=== PATIENT | male | born 1960 | race Caucasian/White ===

== ENCOUNTER 2016-11-14 01:42 | Inpatient (IN) | payer BC ==
--- NOTE | ~2016-11-14 | OP ---
Record Of Operation [facility] [address] [address] NAME: YUE BASS : 62 STATUS : ADM IN PAT#: [id number] AGE: 56 ADM/REG DATE : 11/14/16 MR#: [id number] REPORT SERV DATE: 11/25/16 DICTATED BY: SHANE QUILES DATE: 11/24/16 REPORT STATUS : Draft TRANSCRIBED BY: MODL DATE: 11/24/16 DATE OF PROCEDURE: 11/24/2016 TIME: 2020 hours PROCEDURE: Intubation. INDICATION: Arrest. DESCRIPTION OF PROCEDURE: Pre-oxygenated with 100% oxygen and monitored by blood pressure, EKG, and pulse oximetry. A #7 endotracheal tube placed under direct vision with the GlideScope and bougie to 23 cm. Tube seen to enter between cords. Confirmed by end-tidal CO2 monitor. Of note, the cuff was felt to be and tube was replaced bougie same distance 23 cm. Good breath sounds bilaterally. Sat 100%. Chest x-ray ordered. JANE/SHAWN Shane Quiles M.D. / [id number] CC: Jung Beasley M.D.
--- NOTE | ~2016-11-14 | CN ---
Consultation Report [facility] [address] [place]. [address] NAME: YUE BASS : 62 STATUS : ADM IN [facility]#: [id number] AGE: 56 ADM/REG DATE : 11/14/16 MR#: [id number] REPORT SERV DATE: 12/01/16 DICTATED BY: REJI RICHARD DATE: 12/01/16 REPORT STATUS : Draft TRANSCRIBED BY: MODL DATE: 12/01/16 ICU CONSULTATION DATE OF CONSULTATION: CHIEF COMPLAINT: Respiratory failure. HISTORY OF PRESENT ILLNESS: This is a 56-year-old male with multiple medical problems, who was admitted with PFO shunting and along with pneumonia and hypercapnic respiratory failure. He has a history of chronic bronchitis, chronic hypercapnia, right hemidiaphragmatic paresis, chronic hypoxemia, hypothyroidism, end-stage renal disease, on dialysis, hypertension, dysphagia, and chronic pain along with stage IV throat cancer, treated with chemo and radiation in early 2005. He was admitted with purulent sputum, pulmonary infiltrates, and elevated pCO2. He required intubation and has been intubated for over two weeks. He has been difficult to extubate. This morning, he developed worsening of his pulmonary function with increasing of oxygen requirements up to 100% and saturations in the 80s. PAST MEDICAL HISTORY: As mentioned in the history of present illness. 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 ALLERGIES: PENICILLIN AND IV CONTRAST. MEDICATIONS: See the MAR. SOCIAL HISTORY: History of tobacco use. No alcohol or drug use. He is with three children. PHYSICAL EXAMINATION: VITAL SIGNS: Temperature is 97.8, pulse is 72, respirations 29, blood pressure 103/53, oxygen saturations 83% on 100% FiO2. GENERAL: He is sedated on the ventilator. HEENT: His ears are normal appearing. His nose normal appearing. His oral cavity and oropharynx has an orotracheal and endotracheal tube. NECK: Thin and supple. No obvious abnormalities on inspection. He is sedated and does not respond well for questioning at this time. I discussed the case with the and daughter, who was at the bedside. IMPRESSION: Acute respiratory failure with multiple comorbidities. PLAN: I discussed the findings with the and daughter and would hold off on tracheotomy Consultation Report [facility] [address] [place]. [address] NAME: YUE BASS : 62 STATUS : ADM IN PAT#: [id number] AGE: 56 ADM/REG DATE : 11/14/16 MR#: [id number] REPORT SERV DATE: 12/01/16 DICTATED BY: REJI RICHARD DATE: 12/01/16 REPORT STATUS : Draft TRANSCRIBED BY: MODL DATE: 12/01/16 at this time given his increased oxygen demand at this point, as I think it would be unsafe to proceed with any type of surgical intervention. I will be available for tracheotomy if the time presents itself and it can be done safely with improvement in his condition. PH/MODL Reji Richard M.D. / [id number] CC: Jung Beasley M.D.
--- NOTE | ~2016-11-14 | CN ---
Consultation Report [facility] [address] [place]. [address] NAME: YUE BASS : 62 STATUS : ADM IN PAT#: [id number] AGE: 56 ADM/REG DATE : 11/14/16 MR#: [id number] REPORT SERV DATE: 11/14/16 DICTATED BY: MOHSEN MACARIO IV DATE: 11/14/16 REPORT STATUS : Draft TRANSCRIBED BY: SHAWN DATE: 11/14/16 CONSULTATION DATE OF CONSULTATION: ADDENDUM: OUTPATIENT MEDICATIONS: Dulera two puffs twice a day, Zofran 8 mg twice a day as needed, Percocet 10/325 mg daily, Viagra 100 mg daily, and Bactrim one twice a day. SOCIAL HISTORY: Remarkable for the previous tobacco use as above. There is no alcohol or illicit drug use. He is and has three children. FAMILY HISTORY: Remarkable for no known major medical problems in family members. PHYSICAL EXAMINATION: GENERAL: This is a late middle-aged male, appearing older than his stated age. No current respiratory distress. CURRENT VITAL SIGNS: Temperature is 97.6, pulse is 74, respiratory rate is 16, saturation 96% on 60% BiPAP, blood pressure is 193/88. HEENT: The patient is normocephalic, atraumatic. Extraocular movements are intact. Pupils react to light. Sclerae and conjunctivae are normal. He is on BiPAP mask. On quick look, he has decreased mouth opening with multiple missing teeth. There is dry oral mucosa. NECK: Postsurgical changes consistent with a right radical neck dissection with woody induration and postradiation changes. There is no palpable mass or adenopathy. CHEST: The patient has bilateral rhonchi with some inspiratory squeaks and crackles. No true wheezes are noted. CARDIOVASCULAR: Jugular venous pulsations are difficult to elicit. He has a regular S1, S2 with a S3 and a 2/6 systolic murmur at the sternal border. Peripheral pulses are diminished. ABDOMEN: PEG tube is noted. Protuberant. Soft. There are hypoactive bowel sounds. There is no palpable hepatosplenomegaly or mass. EXTREMITIES: Demonstrate a vascular graft in his arm. NEUROLOGIC: The patient is able to move all extremities. Strength is 5/5 and sensation is intact to light touch. LABORATORY DATA: Chest x-ray demonstrates some increased infiltrates bilaterally with elevation of the right hemidiaphragm. CBC; hemoglobin is 9.8, hematocrit 32.7, platelet count was 226,000, and white blood cell count is 9. INR is 1. PTT is 30.8. Procalcitonin level was 1.24. Sodium is 136, potassium 4.8, chloride 96, bicarb 30, BUN 22, creatinine 6.73, glucose of 93, magnesium is 2. The BNP is 1400, blood gas was pH 7.27, PaO2 of 67, pO2 of 70, which is not significantly different than his baseline. Two. Consultation Report [facility] [id number] [place]. [address] NAME: YUE BASS : 62 STATUS : ADM IN PAT#: [id number] AGE: 56 ADM/REG DATE : 11/14/16 MR#: [id number] REPORT SERV DATE: 11/14/16 DICTATED BY: MOHSEN MACARIO IV DATE: 11/14/16 REPORT STATUS : Draft TRANSCRIBED BY: SHAWN DATE: 11/14/16 ASSESSMENT AND PLAN: 1. Respiratory. The patient's pCO2 is essentially near his baseline, which is usually in the high 50s to low 60s. The chronic hypercapnia is likely multifactorial, however, includes his benzodiazepine use and narcotics. He will be given steroids. If there is a mild exacerbation with Solu-Medrol today, then prednisone tomorrow. He will be given Brovana and Pulmicort twice a day. Duo nebs will be given q.4 hours with albuterol p.r.n. Acapella valve will be given three times a day to help with mucus clearance. Oxygen will be titrated to maintain saturation in the 90% to 94% range. He will remain on the BiPAP at 18/7 with a rate of 10, we can change this as he clinically improves. Chest x-ray will be obtained tomorrow. 2. Infectious disease. The patient is at high risk for resistant organisms with his postsurgical changes and previous dialysis in the clinic. There is also question about aspiration. Will change antibiotics to cefepime and vancomycin per pharmacy. Sputum was sent for Gram stain culture. Procalcitonin level has been requested. 3. Endocrinology. Thyroid functions will be obtained and adjust Synthroid as indicated. 4. Gastrointestinal. We will restart tube feeds per pharmacy. He will undergo swallow evaluation next week. 5. Hematologic. Heparin subcutaneous for deep vein thrombosis prophylaxis. 6. Cardiovascular. The patient is hypertensive. We will restart his medications, give hydralazine as needed for persistent elevation. 7. Neurology. I would recommend avoidance of narcotics and sedatives if at all possible. 8. Renal. Dialysis per Nephrology. Thank you for consulting us. Critical care time seen is 0510 hours to 0610 hours for 60 minutes. ALESHA/SHAWN Mohsen Macario IV, M.D. / [id number] CC: Dewey Gray M.D.
--- NOTE | ~2016-11-14 | CN ---
Consultation Report [facility] [address] [place]. [address] NAME: YUE BASS : 62 STATUS : ADM IN PAT#: [id number] AGE: 56 ADM/REG DATE : 11/14/16 MR#: [id number] REPORT SERV DATE: 11/15/16 DICTATED BY: MOHSEN MACARIO IV DATE: 11/14/16 REPORT STATUS : Draft TRANSCRIBED BY: SHAWN DATE: 11/14/16 CRITICAL CARE CONSULTATION DATE OF CONSULTATION: 11/14/2016 REASON FOR REQUEST: Hypercapnic respiratory failure with chronic bronchitis and chronic hypoxemia. HISTORY OF PRESENT ILLNESS: History is obtained from the records and from the patient and . Mr. Bass is a 56-year-old male with a history of chronic bronchitis, chronic hypercapnia, right hemidiaphragm paresis, chronic hypoxemia, hypothyroidism, end- stage renal disease on dialysis, hypertension, dysphagia and chronic pain, stage IV throat cancer, who is admitted with chest congestion, reported purulent sputum production, and possibly increased pulmonary infiltrates with an elevated pCO2. The patient has had several hospitalizations in the past, though none that I can find since 09/2015. He is chronically on supplemental oxygen up to reported 7 L at home. This is presumed secondary to a right-to left shunt with PFO. He does have chronic bronchitis, for which he is on bronchodilator medications. He has Dulera, which is his maintenance medication, which he admits to using on an as-needed basis. He has a nebulizer that he will use on average three to four times a day. He has a very limited exercise tolerance. He noted increased chest congestion and cough, productive of discolored phlegm. He had a fever sensation. Because of worsening symptoms, he sought evaluation in the emergency room, where he was found to be hypercapnic with a pCO2 of 67 and [id number] respiratory distress, for which he was placed on BiPAP. X-ray demonstrated what appeared to be increased infiltrates, for which we are consulted. The patient has no exposure to ill individuals. He admits to eating intermittently, though has consistently failed swallow evaluations in the past. He is compliant with his dialysis and reportedly is at his dry weight. PULMONARY HISTORY: Remarkable for no history of childhood asthma. He is followed by Dr. Gong for chronic bronchitis. He has had pneumonia on several occasions in the past. He never smoked cigarettes, but did use smokeless tobacco for about 10 years. He quit at the time of his tonsillar cancer. 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 Currently, he is disabled. He is up-to-date on his immunizations. PAST MEDICAL HISTORY: 1. Chronic bronchitis. 2. Chronic hypercapnia/respiratory failure. 3. Right hemidiaphragm paresis. 4. Chronic hypoxemia. 5. Hypothyroidism. 6. End-stage renal disease, on dialysis. 7. Hypertension. 8. Dysphagia. 9. Chronic pain syndrome. 10.Stage IV throat cancer. Consultation Report [facility] [address] [place]. [address] NAME: YUE BASS : 62 STATUS : ADM IN [facility]#: [id number] AGE: 56 ADM/REG DATE : 11/14/16 MR#: [id number] REPORT SERV DATE: 11/15/16 DICTATED BY: MOHSEN MACARIO IV DATE: 11/14/16 REPORT STATUS : Draft TRANSCRIBED BY: SHAWN DATE: 11/14/16 PAST SURGICAL HISTORY: 1. Right radical neck dissection with removal of a tonsillar cancer. 2. Tonsillectomy and adenoidectomy. 3. Fistula in his left upper extremity. 4. PEG tube placement. ALLERGIES: PENICILLIN AND IV CONTRAST. OUTPATIENT MEDICATIONS: Include DuoNeb three times a day as needed, Xanax 1 mg four times a day, Soma 350 mg three times a day p.r.n., Coreg 12.5 mg twice a day, Catapres 0.3 mg twice a day, Catapres patch #3 every week, vitamin B12 daily, Epogen 10,000 units subcu three times a week, Duragesic patch 15 mcg every 72 hours, Synthroid 88 mcg daily, Dulera two puffs twice a day, Zofran as needed, Percocet 10/325 mg daily, Viagra 100 mg daily, and Bactrim one twice a day. SOCIAL HISTORY: Remarkable for the previous tobacco use as above. There is no alcohol or illicit drug use. He is and has three children. FAMILY HISTORY: Remarkable for no known major medical problems in family members. PHYSICAL EXAMINATION: GENERAL: This is a late middle-aged male, appearing older than his stated age. No current respiratory distress. CURRENT VITAL SIGNS: Temperature is 97.6, pulse is 74, respiratory rate is 16, saturation 96% on 60% BiPAP, blood pressure is 193/88. HEENT: The patient is normocephalic, atraumatic. Extraocular movements are intact. Pupils react to light. Sclerae and conjunctivae are normal. He is on BiPAP mask. On quick look, he has decreased mouth opening with multiple missing teeth. There is dry oral mucosa. NECK: Postsurgical changes consistent with a right radical neck dissection with woody induration and postradiation changes. There is no palpable mass or adenopathy. CHEST: The patient has bilateral rhonchi with some inspiratory squeaks and crackles. No true wheezes are noted. CARDIOVASCULAR: Jugular venous pulsations are difficult to elicit. He has a regular S1, S2 with a S3 and a 2/6 systolic murmur at the sternal border. Peripheral pulses are diminished. ABDOMEN: PEG tube is noted. Protuberant. Soft. There are hypoactive bowel sounds. There is no palpable hepatosplenomegaly or mass. EXTREMITIES: Demonstrate a vascular graft in his arm. NEUROLOGIC: The patient is able to move all extremities. Strength is 5/5 and sensation is intact to light touch. LABORATORY DATA: Chest x-ray demonstrates some increased infiltrates bilaterally with elevation of the right hemidiaphragm. CBC; hemoglobin is 9.8, hematocrit 32.7, platelet count was 226,000, and white blood cell count is 9. INR is 1. PTT is 30.8. Procalcitonin Consultation Report [address] [address] NAME: YUE BASS : 62 STATUS : ADM IN [facility]#: [id number] AGE: 56 ADM/REG DATE : 11/14/16 MR#: [id number] REPORT SERV DATE: 11/15/16 DICTATED BY: MOHSEN MACARIO IV DATE: 11/14/16 REPORT STATUS : Draft TRANSCRIBED BY: MODL DATE: 11/14/16 level was 1.24. Sodium is 136, potassium 4.8, chloride 96, bicarb 30, BUN 22, creatinine 6.73, glucose of 93, magnesium is 2. The BNP is 1400, blood gas was pH 7.27, PaO2 of 67, pO2 of 70, which is not significantly different than his baseline. Two. ASSESSMENT AND PLAN: 1. Respiratory. The patient's pCO2 is essentially near his baseline, which is usually in the high 50s to low 60s. The chronic hypercapnia is likely multifactorial, however, includes his benzodiazepine use and narcotics. He will be given steroids. If there is a mild exacerbation with Solu-Medrol today, then prednisone tomorrow. He will be given Brovana and Pulmicort twice a day. Duo nebs will be given q.4 hours with albuterol p.r.n. Acapella valve will be given three times a day to help with mucus clearance. Oxygen will be titrated to maintain saturation in the 90% to 94% range. He will remain on the BiPAP at 18/7 with a rate of 10, we can change this as he clinically improves. Chest x-ray will be obtained tomorrow. 2. Infectious disease. The patient is at high risk for resistant organisms with his postsurgical changes and previous dialysis in the clinic. There is also question about aspiration. Will change antibiotics to cefepime and vancomycin per pharmacy. Sputum was sent for Gram stain culture. Procalcitonin level has been requested. 3. Endocrinology. Thyroid functions will be obtained and adjust Synthroid as indicated. 4. Gastrointestinal. We will restart tube feeds per pharmacy. He will undergo swallow evaluation next week. 5. Hematologic. Heparin subcutaneous for deep vein thrombosis prophylaxis. 6. Cardiovascular. The patient is hypertensive. We will restart his medications, give hydralazine as needed for persistent elevation. 7. Neurology. I would recommend avoidance of narcotics and sedatives if at all possible. 8. Renal. Dialysis per Nephrology. Thank you for consulting us. Critical care time seen is 0510 hours to 0610 hours for 60 minutes. NM/MODL Mohsen Macario IV, M.D. / [id number] CC: Dewey Gray M.D.
--- NOTE | ~2016-11-14 | CN ---
Consultation Report [facility] [address] [place]. [address] NAME: YUE BASS : 62 STATUS : ADM IN PAT#: [id number] AGE: 56 ADM/REG DATE : 11/14/16 MR#: [id number] REPORT SERV DATE: 12/01/16 DICTATED BY: ERWIN RUDD DATE: 12/01/16 REPORT STATUS : Draft TRANSCRIBED BY: MODL DATE: 12/01/16 PALLIATIVE CARE CONSULTATION DATE OF CONSULTATION: 12/01/2016 This palliative care consultation occurred from 1110 to 1300 hours today. This included discussion with Dr. Boateng, review of the chart and records, examination of the patient and discussion with the patient's and daughter. ALLERGIES: LISTED INCLUDE IV CONTRAST, PHENERGAN, AND PENICILLIN. HISTORY: This 56-year-old white male, who home dialyzes for a number of years was admitted on 11/14/2016 with having been found with his oxygen off and altered mental status. He was getting 7-8 L of oxygen at home. How long he was deprived of oxygen and, the reason for it is unclear. The patient was on the transplant list up until his admission, but currently with 100% oxygen requirement, ongoing ventilatory support and difficulty with dialysis as well as progressive other medical issues that does not appear to be a viable plan. I am asked to see the patient and family with regard to possible transitions in care and discussion of supportive measures including resuscitation. The patient is a chronic CO2 retainer. PAST MEDICAL HISTORY: Remarkable for CO2 in the 50s which are chronic, vomitus and aspiration episode in the recent past. He has failed swallowing studies in the past and has had a PEG tube for a number of years after a remote stage IV throat cancer was cured with radiation and chemotherapy greater than 10 years ago. He carries a diagnosis of an IgA nephropathy and Peyronie disease. He has chronic pain issues, hypertension, ongoing debility and anxiety. He has chronic low oxygen levels, felt to be secondary to a right to left cardiac shunt from the patent foramina ovale and pulmonary hypertension last documented to be in the 60s in 2014 with a right heart catheterization. There are reports he has a right paralyzed right diaphragm likely from a previous decortication and thoracotomy on the right side in 2009 for an empyema and severe pneumonia which was almost fatal. SOCIAL HISTORY: He is for a number of years to his , Asiya. They live in [place], he has three children. He did chew tobacco in the past, but stopped with his cancer diagnosis some 12-13 years ago. 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 Family reports a recent 20-pound weight loss. He has fentanyl patches which evidently he keeps one on after he replaces it and this is his usual pattern. Most of his pain appears to be orthopedic possibly related to sports injuries. On admission here, he was 190 pounds, he is now down to 166 with overall increase in his ventilatory support, possibly associated with a transportation for dialysis yesterday. Family reports that the patient was alert and writing notes the day before yesterday. Laboratory testing shows obvious hypercarbia which is not radically different than before, hypoxemia requiring as much as 15 cm of PEEP and Consultation Report [facility] [id number] [facility] [place]. [address] NAME: YUE BASS : 62 STATUS : ADM IN [facility]#: [id number] AGE: 56 ADM/REG DATE : 11/14/16 MR#: [id number] REPORT SERV DATE: 12/01/16 DICTATED BY: ERWIN RUDD DATE: 12/01/16 REPORT STATUS : Draft TRANSCRIBED BY: SHAWN DATE: 12/01/16 100% oxygen. He does have evidence of hypothyroidism on lab testing, and his procalcitonin is rising as his white count. His rising alveolar arterial oxygen gradient is substantial. Staff in the Dialysis Center note that it is getting harder to pull fluid on him. FAMILY HISTORY: Noncontributory. REVIEW OF SYSTEMS: Includes weight loss, home dialysis, and chronic pain issues. PHYSICAL EXAMINATION: GENERAL: Today shows him to be on some propofol on the ventilator. His eyes are somewhat glazed. VITAL SIGNS: His blood pressure is 105/60, his respiratory rate is 24 on CMV and 100%. His pulse is 74 and regular. Respiratory rate is set at 16 to 18 I believe. HEENT: Head, normocephalic. Eyes, equal, sluggish pupils. Sclerae anicteric. Conjunctiva pale but pink. Oropharynx is somewhat dry. He does have some radiation stigmata on the right side of his face and neck. Trachea is midline. He is orally intubated. LUNGS: Show coarse mechanical breath sounds with decreased breath sounds on the left which are somewhat bronchial posteriorly. HEART: Shows a regular rate and rhythm. There is a grade 2-3/6 systolic murmur in the mid chest. ABDOMEN: Shows a PEG tube in the left upper quadrant. Bowel sounds are present but decreased. EXTREMITIES: Cool and dry. There is a trace of edema present. NEUROLOGICAL: Deferred secondary to his sedation. IMPRESSION/PLAN/DISCUSSION: I had an opportunity to meet with the patient's and one of his daughters as well as Dr. Boateng. The current respiratory situation, his cardiac issues, and his increasing left lung infiltrate are of concern. 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 On the other hand, she has commented that he is very tough and in 2009, people thought he was not going to survive his hospitalization with his polymicrobial pneumonia and empyema but he did. We have not discussed the chronological events in the interim. Unfortunately, at this point, the number of correctable problems is somewhat limited and I am not even certain that he will ever stabilize enough to receive a tracheostomy. I certainly think however that before it is placed, that all of us are in clear discussion with the patient and family assuring them that this is not going to be a short-term proposition and that the possibility of needing a tracheostomy permanently may exist. A total of 110 minutes has taken in today's consultation. Consultation Report [address] [address] NAME: YUE BASS : 62 STATUS : ADM IN [facility]#: [id number] AGE: 56 ADM/REG DATE : 11/14/16 MR#: [id number] REPORT SERV DATE: 12/01/16 DICTATED BY: ERWIN RUDD DATE: 12/01/16 REPORT STATUS : Draft TRANSCRIBED BY: SHAWN DATE: 12/01/16 GERRY/SHAWN Erwin Rudd M.D. / [id number] CC: Jung Beasley M.D.
--- NOTE | ~2016-11-14 | CN ---
Consultation Report [facility] [address] [place]. [address] NAME: YUE BASS : 62 STATUS : ADM IN PAT#: [id number] AGE: 56 ADM/REG DATE : 11/14/16 MR#: [id number] REPORT SERV DATE: 11/19/16 DICTATED BY: CADE STEPHENSON DATE: 11/18/16 REPORT STATUS : Draft TRANSCRIBED BY: MODL DATE: 11/18/16 DATE OF CONSULTATION: This is a 56-year-old white male, admitted with hypoxia, respiratory failure, and atelectasis, currently on antibiotics, also had hypertension as well, now on Vapotherm. The patient is diabetic. He has end-stage renal disease, on hemodialysis. He has an IgA nephropathy. History of head and neck cancer, primarily from tonsil, had radiation, chemo, and surgery in the past, also has had PEG tube that had to be replaced by IR due to difficulty opening his mouth the last time his PEG was changed. His last colonoscopy was in 2012, which was unremarkable. His KUB in this admission with fecal stasis. He has had couple episodes of nausea and vomiting, some periumbilical abdominal pain. There has been no bleeding. He has had no bowel movement in a couple of days. White count 7800, hemoglobin 12.1. LFTs unremarkable. PHYSICAL EXAMINATION: GENERAL: Mildly lethargic white male. HEENT: Sequelae of his tonsillar CA radiation. Little ability to open his mouth. NECK: Sequelae of his head and neck cancer and surgery. CHEST: Scattered rhonchi. HEART: Regular rate and rhythm without murmur or gallop. ABDOMEN: Mild distention, some tenderness in periumbilical area. Bowel sounds hypoactive. PEG tube noted into suction. EXTREMITIES/NEUROLOGIC: Otherwise grossly intact. ASSESSMENT: 1. Respiratory failure, on Vapotherm and on antibiotics. 2. End-stage renal disease, on hemodialysis. 3. Hypertension. 4. Diabetes mellitus. 5. Status post tonsillar cancer. 6. Status post PEG. 7. Nausea, vomiting, and periumbilical discomfort. 8. Constipation. SUGGESTION: 1. Continue Protonix, continue Zofran. 2. Continue PEG to suction. 3. We will check ultrasound of the gallbladder, CT of the abdomen. 4. After the above, we will address fecal stasis. 5. We will follow with you. MICHELLE/SHAWN Consultation Report [place] [id number] [place] [address] NAME: YUE BASS : 62 STATUS : ADM IN PAT#: [id number] AGE: 56 ADM/REG DATE : 11/14/16 MR#: [id number] REPORT SERV DATE: 11/19/16 DICTATED BY: CADE STEPHENSON DATE: 11/18/16 REPORT STATUS : Draft TRANSCRIBED BY: SHAWN DATE: 11/18/16 Cade Stephenson M.D. / [id number] CC: Jung Beasley M.D.
--- NOTE | ~2016-11-14 | HP ---
History And Physical [place] [id number] [facility] [place]. [address] NAME: YUE BASS : 62 STATUS : ADM IN [facility]#: [id number] AGE: 56 ADM/REG DATE : 11/14/16 MR#: [id number] REPORT SERV DATE: 11/14/16 DICTATED BY: JUNG BEASLEY DATE: 11/14/16 REPORT STATUS : Draft TRANSCRIBED BY: MODL DATE: 11/14/16 DATE OF ADMISSION: 11/14/2016 ADMITTING GROUP: [facility]. SUBJECTIVE/CHIEF COMPLAINT: Found down off his oxygen, altered mental status, respiratory failure, end-stage renal disease, home hemodialysis. HISTORY OF PRESENT ILLNESS: Mr. Bass is a 56-year-old, gentleman with multifactorial hypoxia, known to the practice, seen by Dr. Durant and Dr. Del Valle for home hemodialysis, which he performs four times a week. He is also on oxygen at home at 8 L. The patient was found down by family off his O2, unknown and unspecified amount of time and the patient cannot recall what started that prodrome, but EMS was called. The patient was brought to [facility] ER. Blood pressure 138/74, temperature 96.8. He was given Levaquin and Solu-Medrol and started on BiPAP. Current settings were FiO2 60, IPAP of 18, EPAP of 10. He is a poor historian. When I ask him direct questions, he kind of gives vague answers. He may tolerate high-flow O2. He wants to be off the BiPAP, which is fine as long as his oxygenation status is stable. He was asking for his home pain medicines to be restarted. Dr. Macario saw the patient in consultation yesterday and provided imported recommendations including IV antibiotics, Levaquin, cefepime, and vancomycin, and advised regarding BiPAP versus high-flow oxygenation. The patient is currently on 6 L nasal cannula, but only saturating 82%. PAST MEDICAL HISTORY: Diabetes; end-stage renal disease using home hemodialysis, patient of Dr. Del Valle; IgA nephropathy, throat cancer, hypertension, and anxiety. FAMILY HISTORY: Unremarkable for kidney disease. SOCIAL HISTORY: Lives with and three children in [place]. Previous tobacco use. No alcohol or drug use. 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 REVIEW OF SYSTEMS: Positive for neck and shoulder pain, lethargy, and shortness of breath. And all other review of systems negative this time. OBJECTIVE/PHYSICAL EXAMINATION: VITAL SIGNS: Temperature 98.0, pulse 75, blood pressure 173/90, 82% O2 saturation on 6 L nasal cannula. GENERAL: Appears older than stated age. EYES: Extraocular movements intact. No conjunctivitis. ENT: [facility], dry oropharynx. No facial droop. LYMPHATICS: No supraclavicular or cervical lymphadenopathy. SKIN: Dusky skin color. No rash. HEART: S1, S2 regular. EXTREMITIES: 2+ bilateral lower extremity edema from the knees down. LUNGS: Few crackles, wearing the BiPAP mask, now switched over to O2. He has mild tachypnea. History And Physical [address] [place]. [address] NAME: YUE BASS : 62 STATUS : ADM IN [facility]#: [id number] AGE: 56 ADM/REG DATE : 11/14/16 MR#: [id number] REPORT SERV DATE: 11/14/16 DICTATED BY: JUNG BEASLEY DATE: 11/14/16 REPORT STATUS : Draft TRANSCRIBED BY: SHAWN DATE: 11/14/16 ABDOMEN: Soft, nontender, decreased bowel sounds. EXTREMITIES AND PSYCH: Alert and oriented x2. [id number] historian. Positive cough and lethargy. LABORATORY DATA: Chest x-ray shows bibasilar atelectasis and/or infiltrate. ABG; pH of 7.27, pCO2 67, pO2 70, bicarbonate 29.9, 90% O2 saturation on FiO2 60. Troponin I 0.02. TSH 5.28. Sodium 136, potassium 4.8, chloride 96, bicarb 30, BUN 22, creatinine 6.73, glucose 93, calcium 7.7, magnesium 2.2, albumin 2.5, BNP 2400. White count 9.0, hemoglobin 9.8, hematocrit 32.7, and platelets 226. Blood cultures x2 are pending. ASSESSMENT AND PLAN: Mr. Bass is a 56-year-old, gentleman with hypoxic respiratory distress, home Hemodialysis, bilateral crackles, elevated pCO2. 1. Renal. The patient will have hemodialysis tomorrow. We will place on a Tuesday, Tuesday, and Tuesday schedule here at dialysis unit. He says his target weight is about 85 and that they are trying to pull him dry nurses orders for home hemo. 2. Pulmonary. I appreciate recommendations on vancomycin, cefepime, and Levaquin. He needs high-flow oxygen and/or BiPAP. He has multifactorial hypoxia. His chest x-ray shows bilateral infiltrates. RG/MODL Jung Beasley M.D. / [id number] CC: Dewey Gray M.D.
--- NOTE | ~2016-11-14 | OP ---
Record Of Operation [facility] [address] [facility] [place] [address] NAME: YUE BASS : 62 STATUS : ADM IN [facility]#: [id number] AGE: 56 ADM/REG DATE : 11/14/16 MR#: [id number] REPORT SERV DATE: 11/27/16 DICTATED BY: ESTRELLA DIEZ DATE: 11/26/16 REPORT STATUS : Draft TRANSCRIBED BY: MODL DATE: 11/26/16 DATE OF PROCEDURE: 11/26/2016 INDICATION FOR PROCEDURE: CT scan shows multifocal pneumonia in the upper lobe in a patient with end-stage renal disease and concern for opportunistic infection. DIAGNOSIS: Acute hypoxic respiratory failure. POSTOPERATIVE DIAGNOSIS: Acute hypoxic respiratory failure with concomitant multifocal pneumonia. PROCEDURE NOTE: The patient was already intubated. He received 100 mg of propofol and 2 mg of Versed for sedation. We were able to put the bronchoscope down the endotracheal tube, the endotracheal tube was in good position. There was a significant amount of sputum in the bottom of the endotracheal tube and adithya. This was suctioned and an airway examination was conducted. We placed the bronchoscope in the right upper lobe and obtained a bronchoalveolar lavage of the right upper lobe and posterior subsegment of the right lower lobe for culture data. We were able to obtain around 40 mL fluid for testing. PLAN: Please follow up microbiological and pathological studies. Continue current antibiotic coverage. HFQ/SHAWN Estrella Diez MD / [id number] CC: Jung Beasley M.D.
--- NOTE | ~2016-11-14 | DS ---
Discharge Summary [facility] [address] [place]. [address] NAME: YUE BASS : 62 STATUS : DIS IN PAT#: [id number] AGE: 56 ADM/REG DATE : 11/14/16 MR#: [id number] REPORT SERV DATE: 12/21/16 DICTATED BY: ELIZABETH CRUMP JR DATE: 12/20/16 REPORT STATUS : Draft TRANSCRIBED BY: SHAWN DATE: 12/20/16 Data Collection from hospitalization DISCHARGE DIAGNOSES: 1. Acute kidney injury. 2. Pulmonary hypertension. 3. Failure to thrive. 4. Diabetes. 5. Hypertension. 6. End-stage renal disease. 7. IgA nephropathy. 8. History of throat cancer. 9. Anxiety. 10.History of tobacco use. CONSULTATIONS: 1. Kojo Macario M.D. 2. Elmer Kim M.D. 3. Tashi Hale M.D. 4. Pacheco Rudd M.D. 5. Zaheer Patrick M.D. PROCEDURES: 1. Intubation 11/24/2016. 2. Bronchoscopy with bronchoalveolar lavage 11/26/2016. 3. Doppler evaluation of left upper extremity dialysis fistula 11/16/2016. 4. CT scan of the abdomen and pelvis without contrast 11/18/2016. 5. Gallbladder ultrasound 11/19/2016. 6. CT scan of the chest without contrast 11/26/2016. PATHOLOGY: Lung bronchoalveolar lavage (thin prep)-benign. No malignant cells identified. Scattered neutrophils noted. Gram stain for fungal organisms-multiple hyphal and yeast forms present suggesting Caryl species. No pneumocystitis identified. DISPOSITION: [facility]. HOSPITAL COURSE: This is a 56-year-old man who has multifactorial hypoxia. He sees Dr. Durant and Dr. Del Valle for home hemodialysis which he performs four times a week. He is also on oxygen at home at 8 L. The patient was found down by family off his O2 for an unspecified amount of time. The patient could not recall what started this issue. The EMS was called. He was brought to the [facility] Emergency Room. Blood pressure was 138/74. He was given Levaquin and Solu-Medrol and started on BiPAP. When asked direct questions, he would give answers. He may tolerate high-flow O2. He wanted to be off the BiPAP which would be fine as long as his oxygenation status was stable. He was asking for his home pain medications, and these were restarted. He was placed on IV antibiotics with Levaquin, cefepime, and vancomycin. He was admitted at this time for further evaluation and treatment. Discharge Summary [place] [address] [place]. [address] NAME: YUE BASS : 62 STATUS : DIS IN PAT#: [id number] AGE: 56 ADM/REG DATE : 11/14/16 MR#: [id number] REPORT SERV DATE: 12/21/16 DICTATED BY: ELIZABETH CRUMP JR DATE: 12/20/16 REPORT STATUS : Draft TRANSCRIBED BY: SHAWN DATE: 12/20/16 Upon admission, chest x-ray showed bibasilar atelectasis and/or infiltrate. Creatinine level was 6.73. Chest x-ray shows bilateral infiltrates. He was seen by Dr. Kojo Macario. His peak CO2 was essentially near his baseline which is usually in the high 50s to low 60s. Chronic hypercapnia was felt to be likely multifactorial; however, it does include his benzodiazepine use and narcotics. He was going to be given systemic steroids if there was a mild exacerbation with Solu-Medrol at this time and then prednisone the following day. He would also be given Brovana and Pulmicort twice a day. DuoNebs were going to be given and Acapella valve was going to be provided. We would titrate oxygen to maintain saturations in the 90% to 94% range. His antibiotics had been changed to cefepime and vancomycin. Sputum was sent for Gram stain and culture. Procalcitonin level was going to be checked. Heparin was given for DVT prophylaxis. He recommended avoiding all narcotics and sedatives if possible. A PICC line had been inserted. The following day, his breathing was better. He said he felt better. Creatinine level was 9.58. O2 and intermittent BiPAP continued. Hemodialysis therapy was performed. On the , he said he felt better with Vapotherm. He was seen by Dr. Zaheer Patrick. The patient had a left upper extremity AV graft with mild/stable left upper extremity edema. There was not a strong clinical suspicion for central venous stenosis. As the patient's symptoms were stable and hemodialysis was going well, left upper extremity fistula duplex was going to be performed to evaluate this. He underwent Doppler evaluation of left upper extremity dialysis fistula. He had a patent left upper extremity dialysis graft with what appeared to be adequate flow volume. On 11/17/2016, hemodialysis therapy continued. He did have some nausea and vomiting. He remained on Vapotherm. Vancomycin and cefepime were continued. He was given a dose of Phenergan. He was moved to the CCU with accelerated hypertension, nausea, vomiting, and abdominal pain. Cardene drip was being provided with his accelerated hypertension. He was seen by Dr. Elmer Kim. The patient has IgA nephropathy. He has a history of head and neck cancer primarily from the tonsil and had radiation, chemotherapy, and surgery in the past. He recommended that we continue Protonix and Zofran. He had had a PEG tube in place that had been replaced by Interventional Radiology due to difficulty opening his mouth. His last colonoscopy was in 2012 and had been unremarkable. An ultrasound of the gallbladder and CT scan of the abdomen were requested. After this was performed, we would address his fecal stasis. On the , hemodialysis therapy continued. He had a CT scan of the abdomen and pelvis without contrast as well as a gallbladder ultrasound. His abdominal pain had decreased. White count was 12.4. O2 was continued. Blood pressure control continued as well. Later that day, he did have some nausea. On 11/20/2016, the patient complained of some constipation. Tube feedings had been on hold. His pain had improved. On the , he appeared more comfortable. He was still on Cardene. Hemodialysis therapy continued. He had had some constipation. He was doing well on Vapotherm. His O2 requirement decreased. EPO was continued. He was changed to oral Reglan. The patient required intubation due to acute hypercapnic respiratory failure. It was felt that the patient should undergo bronchoscopy with bronchoalveolar alveolar lavage of the right upper lobe and posterior segment of the right lower lobe for culture data. The patient underwent this procedure by Dr. Estrella Diez. He tolerated this well. There were no complications. A CT scan of the chest without contrast was performed. The patient remained on vancomycin and cefepime. He had decreased bowel sounds, and he had some abdominal distention. There was some tympany. He did have a bowel movement. Tube feedings were on hold. MiraLAX was given. Dulcolax was also given. On 11/28/2016, his abdomen was Discharge Summary [facility] [address] [place]. [address] NAME: YUE BASS : 62 STATUS : DIS IN PAT#: [id number] AGE: 56 ADM/REG DATE : 11/14/16 MR#: [id number] REPORT SERV DATE: 12/21/16 DICTATED BY: ELIZABETH CRUMP JR DATE: 12/20/16 REPORT STATUS : Draft TRANSCRIBED BY: SHAWN DATE: 12/20/16 still markedly distended. He was felt to have an ileus and constipation. MiraLAX was continued. We were going to consider TPN. The patient had been a very difficult intubation. The following day, hemodialysis therapy was performed. Chest x-ray showed small bilateral pleural effusions, right greater than left. White count was 14.2. It was felt that the patient would need a trach. TPN therapy had been started. Subcu heparin and proton pump inhibitor were continued. He was lethargic but awake on the ventilator. He did indicate some abdominal pain. Blood pressure had increased. A dose of magnesium citrate was given. He had increased FiO2 requirement-now 100%. There was a new opacity in the left lung field. His prognosis overall was felt to be very poor. The patient had had a cardiac arrest on 11/24/2016 and had been intubated. He was felt to be too hypoxemic to trach safely. He was seen by Dr. Pacheco Rudd. The patient had been on a transplant list up until the time of this admission but was currently on 100% oxygen requirement, ongoing ventilatory support, and was having difficulty with dialysis as well as progressive other medical issues, and this did not appear to be a viable plan. He had been asked to see the patient and his family with regard to the possible transitioning care and discussion of supportive measures including resuscitation. The patient is a chronic CO2 retainer. He felt that the number of correctable problems were somewhat limited and he was not certain that the patient would ever stabilize enough to receive a tracheostomy. He felt that before this was placed, everyone would be clear in discussing with the patient and his family assuring them that this was not going to be a short-term proposition and that the possibility of needing a tracheostomy permanently may exist. The patient was also seen by Dr. Tashi Hale regarding respiratory failure. The patient has a history of stage IV throat cancer and had been treated with chemo and radiation in early 2005. He was felt to have acute respiratory failure with multiple comorbidities at this time. He discussed findings with the patient's and daughter. He recommended holding off on tracheotomy at this time given his increased oxygen demand at this point. He felt it would be unsafe to proceed with any type of surgical intervention. He would be available for tracheotomy if the time presented itself and could be done safely with improvement of the patient's condition. On 12/02/2016, dialysis therapy was not performed that day. He was on Levophed. Chest x- ray still showed volume overload with bilateral pleural effusions. He had some hypotension. The patient's felt that the patient was a fighter but did understand the gravity of his current illness. At this point, he was still a full code. He was only minimally responsive on Levophed. His decided to hold on dialysis. Tube feedings were also on hold. He remained on TPN. The left upper extremity AV graft was flushed so it could be used for CRRT. This was begun that evening. On the , he was minimally responsive. The patient's prognosis was felt to be dismal. The patient's made him a DNR code status. Levophed was held. The patient was felt to be in shock. CRRT continued. His prognosis remained extremely poor. Vancomycin was going to be stopped. On 12/05/2016, his condition continued to decline. He was sedated and unresponsive. The patient's family was now ready for care termination. His condition continued to decline. Later that afternoon, he was without blood pressure, pulse, or respirations. He was pronounced at 1629 p.m. and released to the above-mentioned home. Information collected by: Tanja Stover I submit the above information as my discharge summary. Discharge Summary [address] [place] [place] [address] NAME: YUE BASS : 62 STATUS : DIS IN PAT#: [id number] AGE: 56 ADM/REG DATE : 11/14/16 MR#: [id number] REPORT SERV DATE: 12/21/16 DICTATED BY: ELIZABETH CRUMP JR DATE: 12/20/16 REPORT STATUS : Draft TRANSCRIBED BY: SHAWN DATE: 12/20/16 TG/SHAWN Elizabeth Crump Jr, M.D. / [id number] CC: Dewey Gray M.D. Robert Warren Goldmann, M.D. Peter Hunt, M.D. David Collins, M.D.
[2016-11-14 01:21] LABS: INSTRUMENT SERIAL # 8087; PCO2 (CO2 TENSION) 66 MMHG (35-45); PO2 (O2 TENSION) 66 MMHG (79-93); pH 7.27 (7.37-7.43)
[2016-11-14 01:22] LABS: ALLENS TEST Pos; BE (BASE EXCESS) 1.6 MEQ/L (0 +/- 2.5); CARBOXYHEMOGLOBIN 1.8 % (0-3); DEVICE NRB; HCO3 (ACTUAL BICARBONATE) 29.7 MEQ/L (23-27); HEMOBLOGIN CONTENT 10.3 G/DL (14-18); METHEMOGLOBIN 0.3 % (0-3); O2 CONTENT 12.7 VOL% (18-24); OPERATOR ID 17589; SAMPLE Arterial
[~2016-11-14 01:42] MED LIST: ADCIRCA20 MG PO; ADOXA100 MG PO; ALBUTEROL NEB INH; AMB10 PEG; AMB10 PO; B121000P IM; BACDS PO; CAT2 PEG; CAT2 PO; CAT3 PO; CATAPRES3 TOP; COREG25 PO; COZAAR100 MG PO; DOLOPHINE10 MG PO; DOLOPHINE5 MG PO; DULERA 200 MCG/13 GM INH; DUONEB INH; DURA12 TOP; DURA25; DURA25 TOP; DURA50 TOP; EPOGEN10000 MG/M SC; FEOSOLEL IV; FESO4UDL PO; HYDROCODONE PO; IRON INJECTION IV; LEVAQUIN5T PO; LEVOTHYROXIN25 MCG PO; LEVOTHYROXIN75 MCG PEG; LEVOTHYROXIN75 MCG PO; LEVOTHYROXIN88 MCG PO; LORT7 PO; LOTREL1 CA5 PO; METHADOSE10 MG PO; NORCO1 TAB PO; NORV10 PEG; NORV10 PO; PERCOCET1 TA4 PEG; PERCOCET1 TA4 PO; PROTEIN SHAKES PO; SOMATAB PEG; SOMATAB PO; SYN88 PO; TRAN200 PEG; TRAN200 PO; TRANDAT100 PO; TRANDAT300 PO; TRANDATE PO; VIAGRA100 MG PO; XANAX1 MG PEG; XANAX1 MG PO; ZOFRAN8 PEG; ZOFRAN8 PO; ZOFRANODT8 PO
[2016-11-14 01:57] LABS: BASOPHILS 0.2 %; BASOPHILS ABSOLUTE 0.02 10/3/uL (0.0-0.16); EOSINOPHILS 0.9 %; EOSINOPHILS ABSOLUTE 0.08 10/3/uL (0.0-0.53); ER CBC TAT 0 Hrs 08 Mins; HEMOGLOBIN 9.8 g/dL (13.6-17.8); IMMATURE GRANULOCYTES 0.4 %; IMMATURE GRANULOCYTES ABSOLUTE 0.04 10/3/uL (0.0-0.11); LYMPHOCYTES ABSOLUTE 0.45 10/3/uL (0.67-4.30); MEAN CORPUSCULAR HEMOGLOB 28.8 pg (26.0-34.0); MEAN PLATELET VOLUME 9.3 fL (9.2-13.0); MONOCYTES 5.8 %; MONOCYTES ABSOLUTE 0.52 10/3/uL (0.21-1.20); NEUTROPHILS 87.7 %; PLATELET COUNT 226 10/3/uL (150-400); RBC DISTRIBUTION WIDTH 16.2 % (12.0-16.0)
[2016-11-14 01:58] LABS: HEMATOCRIT 32.7 % (40.0-51.0); MANUAL DIFF NO %; MEAN CORPUSCULAR VOLUME 96.2 fL (80-100)
[2016-11-14 02:07] LABS: INTERNATIONAL NORMAL RATI 1.1 UNITS (-); PROTIME (NOT ORD) 13.7 SEC (12.0-14.5)
[2016-11-14 02:12] LABS: PARTIAL THROMBO TIME 30.8 SEC (22.5-37.2)
[2016-11-14 02:23] LABS: BUN (BLOOD UREA NITROGEN) 22 MG/DL (6-23); CALCIUM, SERUM 7.7 MG/DL (8.5-10.4); CHEST PAIN PROFILE TAT 0 Hrs 28 Mins; CHLORIDE, SERUM 96 MMOL/L (96-112); CO2 (CARBON DIOXIDE) 30 MMOL/L (24-34); CREATININE 6.73 MG/DL (0.70-1.30); GFR AFRICAN AMERICAN 10 ML/MIN (>=60); GFR NON AFRICAN AMERICAN 8 ML/MIN (>=60); GLUCOSE, SERUM 93 MG/DL (60-99); POTASSIUM, SERUM 4.8 MMOL/L (3.5-5.3); SODIUM, SERUM 136 MMOL/L (135-148); TROPONIN I 0.02 NG/ML (<0.05)
[2016-11-14 03:05] LABS: TOTAL BILIRUBIN 0.5 MG/DL (0-1.2)
[2016-11-14 03:12] LABS: ALBUMIN 3.5 G/DL (3.5-5.0); DIRECT BILIRUBIN 0.2 MG/DL (0.0-0.4); INDIRECT BILIRUBIN(NOT ORDER) 0.3 MG/DL (0.1-0.9); SGOT(AST) 37 U/L (5-40); SGPT(ALT) 47 U/L (5-65); TOTAL PROTEIN 7.3 G/DL (6.0-8.5)
[2016-11-14 03:13] LABS: ALKALINE PHOSPHATASE 105 U/L (45-117)
[2016-11-14 03:52] LABS: BE (BASE EXCESS) 1.9 MEQ/L (0 +/- 2.5); BIPAP 15/5 cm.H2O; CARBOXYHEMOGLOBIN 1.4 % (0-3); HCO3 (ACTUAL BICARBONATE) 29.9 MEQ/L (23-27); HEMOBLOGIN CONTENT 10.1 G/DL (14-18); INSTRUMENT SERIAL # 8087; METHEMOGLOBIN 0.3 % (0-3); O2 CONTENT 12.7 VOL% (18-24); OPERATOR ID 17589; PCO2 (CO2 TENSION) 67 MMHG (35-45); PO2 (O2 TENSION) 70 MMHG (79-93); SAMPLE Arterial; pH 7.27 (7.37-7.43)
[2016-11-14 07:02] LABS: FREE T4 0.63 NG/DL (0.76-1.46)
[2016-11-14 07:33] LABS: PROCALCITONIN 1.24 ng/mL (<0.5)
[2016-11-15 03:50] LABS: BASOPHILS 0 %; EOSINOPHILS 0 %; HEMATOCRIT 33.3 % (40.0-51.0); IMMATURE GRANULOCYTES 0.3 %; IMMATURE GRANULOCYTES ABSOLUTE 0.02 10/3/uL (0.0-0.11); LYMPHOCYTES 3.3 %; LYMPHOCYTES ABSOLUTE 0.19 10/3/uL (0.67-4.30); MEAN CORPUSCULAR HEMOGLOB 28.4 pg (26.0-34.0); MEAN CORPUSCULAR VOLUME 94.6 fL (80-100); MEAN PLATELET VOLUME 9.9 fL (9.2-13.0); MONOCYTES 2.6 %; MONOCYTES ABSOLUTE 0.15 10/3/uL (0.21-1.20); NEUTROPHILS 93.8 %; NEUTROPHILS ABSOLUTE 5.37 10/3/uL (2.02-8.40); PLATELET COUNT 227 10/3/uL (150-400); RBC DISTRIBUTION WIDTH 16.4 % (12.0-16.0); RED CELL COUNT 3.52 10/6/uL (4.7-6.1); WHITE BLOOD CELLS 5.7 10/3/uL (4.5-10.5)
[2016-11-15 03:55] LABS: MANUAL DIFF NO %
[2016-11-15 03:56] LABS: CALCIUM, SERUM 7.6 MG/DL (8.5-10.4); CHLORIDE, SERUM 98 MMOL/L (96-112); CO2 (CARBON DIOXIDE) 26 MMOL/L (24-34); POTASSIUM, SERUM 5.5 MMOL/L (3.5-5.3); SODIUM, SERUM 136 MMOL/L (135-148)
[2016-11-15 03:57] LABS: BUN (BLOOD UREA NITROGEN) 48 MG/DL (6-23); CREATININE 9.58 MG/DL (0.70-1.30); GFR AFRICAN AMERICAN 6 ML/MIN (>=60); GFR NON AFRICAN AMERICAN 5 ML/MIN (>=60); GLUCOSE, SERUM 116 MG/DL (60-99)
[2016-11-15 14:02] LABS: HEPATITIS B SURFACE ANTIGEN NON-REACTIVE (NON-REACT)
[2016-11-15 14:30] LABS: HEPATITIS B CORE AB IGM NON-REACTIVE (NON-REAC); HEPATITIS C ANTIBODY NON-REACTIVE (NON-REACT)
[2016-11-15 14:31] LABS: HIV COMBO NON-REACTIVE (NON REAC)
[2016-11-15 14:32] LABS: HEP A ANTIBODY IGM NON-REACTIVE (NON-REACT)
[2016-11-16 04:56] LABS: BASOPHILS 0 %; EOSINOPHILS 0 %; HEMATOCRIT 33.2 % (40.0-51.0); HEMOGLOBIN 10.2 g/dL (13.6-17.8); IMMATURE GRANULOCYTES 0.6 %; IMMATURE GRANULOCYTES ABSOLUTE 0.05 10/3/uL (0.0-0.11); LYMPHOCYTES 3.2 %; LYMPHOCYTES ABSOLUTE 0.28 10/3/uL (0.67-4.30); MEAN CORPUS HGB CONC 30.7 g/dL (32.0-36.0); MEAN CORPUSCULAR HEMOGLOB 28.5 pg (26.0-34.0); MEAN CORPUSCULAR VOLUME 92.7 fL (80-100); MEAN PLATELET VOLUME 9.6 fL (9.2-13.0); MONOCYTES 3.6 %; MONOCYTES ABSOLUTE 0.32 10/3/uL (0.21-1.20); NEUTROPHILS 92.6 %; NEUTROPHILS ABSOLUTE 8.18 10/3/uL (2.02-8.40); PLATELET COUNT 205 10/3/uL (150-400); RBC DISTRIBUTION WIDTH 16.6 % (12.0-16.0); RED CELL COUNT 3.58 10/6/uL (4.7-6.1)
[2016-11-16 04:57] LABS: MANUAL DIFF NO %; WHITE BLOOD CELLS 8.8 10/3/uL (4.5-10.5)
[2016-11-16 05:18] LABS: CALCIUM, SERUM 7.4 MG/DL (8.5-10.4); CHLORIDE, SERUM 99 MMOL/L (96-112); CO2 (CARBON DIOXIDE) 25 MMOL/L (24-34); CREATININE 9.21 MG/DL (0.70-1.30); GFR AFRICAN AMERICAN 7 ML/MIN (>=60); GFR NON AFRICAN AMERICAN 6 ML/MIN (>=60); GLUCOSE, SERUM 101 MG/DL (60-99); PHOSPHORUS, SERUM 4.8 MG/DL (2.5-4.5); POTASSIUM, SERUM 5.1 MMOL/L (3.5-5.3); SODIUM, SERUM 136 MMOL/L (135-148)
[2016-11-16 05:23] LABS: BUN (BLOOD UREA NITROGEN) 57 MG/DL (6-23)
[2016-11-17 05:40] LABS: BASOPHILS 0 %; EOSINOPHILS 0 %; HEMATOCRIT 32.6 % (40.0-51.0); IMMATURE GRANULOCYTES 0.5 %; IMMATURE GRANULOCYTES ABSOLUTE 0.04 10/3/uL (0.0-0.11); LYMPHOCYTES 5.2 %; LYMPHOCYTES ABSOLUTE 0.45 10/3/uL (0.67-4.30); MEAN CORPUS HGB CONC 30.7 g/dL (32.0-36.0); MEAN CORPUSCULAR HEMOGLOB 28.6 pg (26.0-34.0); MEAN CORPUSCULAR VOLUME 93.1 fL (80-100); MEAN PLATELET VOLUME 10.3 fL (9.2-13.0); MONOCYTES 2.5 %; MONOCYTES ABSOLUTE 0.22 10/3/uL (0.21-1.20); NEUTROPHILS 91.8 %; NEUTROPHILS ABSOLUTE 7.95 10/3/uL (2.02-8.40); PLATELET COUNT 188 10/3/uL (150-400); RBC DISTRIBUTION WIDTH 16.5 % (12.0-16.0); WHITE BLOOD CELLS 8.7 10/3/uL (4.5-10.5)
[2016-11-17 05:41] LABS: MANUAL DIFF NO %
[2016-11-17 06:09] LABS: CALCIUM, SERUM 7.1 MG/DL (8.5-10.4); CHLORIDE, SERUM 98 MMOL/L (96-112); CO2 (CARBON DIOXIDE) 24 MMOL/L (24-34); GFR AFRICAN AMERICAN 5 ML/MIN (>=60); GFR NON AFRICAN AMERICAN 4 ML/MIN (>=60); GLUCOSE, SERUM 119 MG/DL (60-99); PHOSPHORUS, SERUM 4.7 MG/DL (2.5-4.5); POTASSIUM, SERUM 5.3 MMOL/L (3.5-5.3); SODIUM, SERUM 135 MMOL/L (135-148); VANCOMYCIN TROUGH 24.2 MCG/ML (10.0-20.0)
[2016-11-17 06:10] LABS: BUN (BLOOD UREA NITROGEN) 84 MG/DL (6-23)
[2016-11-18 05:38] LABS: BASOPHILS 0 %; EOSINOPHILS 0.1 %; EOSINOPHILS ABSOLUTE 0.01 10/3/uL (0.0-0.53); IMMATURE GRANULOCYTES 0.8 %; IMMATURE GRANULOCYTES ABSOLUTE 0.09 10/3/uL (0.0-0.11); LYMPHOCYTES 4.5 %; LYMPHOCYTES ABSOLUTE 0.49 10/3/uL (0.67-4.30); MEAN CORPUS HGB CONC 30.4 g/dL (32.0-36.0); MEAN CORPUSCULAR HEMOGLOB 28.5 pg (26.0-34.0); MEAN CORPUSCULAR VOLUME 93.6 fL (80-100); MEAN PLATELET VOLUME 10.5 fL (9.2-13.0); MONOCYTES 3.2 %; MONOCYTES ABSOLUTE 0.35 10/3/uL (0.21-1.20); NEUTROPHILS 91.4 %; NEUTROPHILS ABSOLUTE 9.88 10/3/uL (2.02-8.40); PLATELET COUNT 194 10/3/uL (150-400); RBC DISTRIBUTION WIDTH 16.5 % (12.0-16.0); WHITE BLOOD CELLS 10.8 10/3/uL (4.5-10.5)
[2016-11-18 05:41] LABS: HEMATOCRIT 39.8 % (40.0-51.0); HEMOGLOBIN 12.1 g/dL (13.6-17.8); MANUAL DIFF NO %; RED CELL COUNT 4.25 10/6/uL (4.7-6.1)
[2016-11-18 05:52] LABS: ALBUMIN 3.3 G/DL (3.5-5.0); CHLORIDE, SERUM 96 MMOL/L (96-112); CO2 (CARBON DIOXIDE) 25 MMOL/L (24-34); GFR AFRICAN AMERICAN 6 ML/MIN (>=60); GFR NON AFRICAN AMERICAN 5 ML/MIN (>=60); GLUCOSE, SERUM 103 MG/DL (60-99); PHOSPHORUS, SERUM 4.2 MG/DL (2.5-4.5); POTASSIUM, SERUM 5.2 MMOL/L (3.5-5.3); SODIUM, SERUM 133 MMOL/L (135-148)
[2016-11-18 05:53] LABS: BUN (BLOOD UREA NITROGEN) 68 MG/DL (6-23)
[2016-11-19 04:04] LABS: HEMATOCRIT 42.3 % (40.0-51.0); HEMOGLOBIN 13.3 g/dL (13.6-17.8); MEAN CORPUS HGB CONC 31.4 g/dL (32.0-36.0); MEAN CORPUSCULAR HEMOGLOB 28.8 pg (26.0-34.0); MEAN CORPUSCULAR VOLUME 91.6 fL (80-100); MEAN PLATELET VOLUME 10.1 fL (9.2-13.0); PLATELET COUNT 201 10/3/uL (150-400); RBC DISTRIBUTION WIDTH 16.7 % (12.0-16.0); RED CELL COUNT 4.62 10/6/uL (4.7-6.1); WHITE BLOOD CELLS 12.4 10/3/uL (4.5-10.5)
[2016-11-19 04:05] LABS: MANUAL DIFF YES %
[2016-11-19 04:12] LABS: ALBUMIN 3.4 G/DL (3.5-5.0); CALCIUM, SERUM 8.4 MG/DL (8.5-10.4); CHLORIDE, SERUM 94 MMOL/L (96-112); CO2 (CARBON DIOXIDE) 24 MMOL/L (24-34); PHOSPHORUS, SERUM 4.7 MG/DL (2.5-4.5); POTASSIUM, SERUM 4.9 MMOL/L (3.5-5.3); SODIUM, SERUM 132 MMOL/L (135-148)
[2016-11-19 04:18] LABS: BUN (BLOOD UREA NITROGEN) 94 MG/DL (6-23); GFR AFRICAN AMERICAN 5 ML/MIN (>=60); GFR NON AFRICAN AMERICAN 4 ML/MIN (>=60); GLUCOSE, SERUM 139 MG/DL (60-99)
[2016-11-19 05:38] LABS: BAND NEUTROPHILS 3 %; LYMPHOCYTES 1 %; LYMPHOCYTES ABSOLUTE (CALC) 0.12 10/3/uL (0.67-4.30); MONOCYTES 2 %; MONOCYTES ABSOLUTE (CALC) 0.25 10/3/uL (0.21-1.20); NEUTROPHILS ABSOLUTE (CALC) 12.03 10/3/uL (2.02-8.40); PLATELET ESTIMATE ADQ (ADEQUATE); SEGMENTED NEUTROPHIL (0) 94 %; TOTAL NUCLEATED CELLS 100; VACUOLATED NEUTROPHILES FEW
[2016-11-19 05:39] LABS: POLYCHROMASIA 1+ (2-5/OIF) (0-1/OIF); TEARDROP SHAPED RBCS OCC (0-2/OIF)
[2016-11-20 04:39] LABS: BASOPHILS 0.2 %; BASOPHILS ABSOLUTE 0.02 10/3/uL (0.0-0.16); EOSINOPHILS 0.2 %; EOSINOPHILS ABSOLUTE 0.03 10/3/uL (0.0-0.53); HEMATOCRIT 41.2 % (40.0-51.0); HEMOGLOBIN 12.6 g/dL (13.6-17.8); IMMATURE GRANULOCYTES 1.1 %; IMMATURE GRANULOCYTES ABSOLUTE 0.14 10/3/uL (0.0-0.11); LYMPHOCYTES 5.1 %; LYMPHOCYTES ABSOLUTE 0.66 10/3/uL (0.67-4.30); MEAN CORPUS HGB CONC 30.6 g/dL (32.0-36.0); MEAN CORPUSCULAR HEMOGLOB 27.9 pg (26.0-34.0); MEAN CORPUSCULAR VOLUME 91.4 fL (80-100); MEAN PLATELET VOLUME 9.9 fL (9.2-13.0); MONOCYTES 2.6 %; MONOCYTES ABSOLUTE 0.34 10/3/uL (0.21-1.20); NEUTROPHILS 90.8 %; NEUTROPHILS ABSOLUTE 11.72 10/3/uL (2.02-8.40); PLATELET COUNT 184 10/3/uL (150-400); RED CELL COUNT 4.51 10/6/uL (4.7-6.1); WHITE BLOOD CELLS 12.9 10/3/uL (4.5-10.5)
[2016-11-20 04:40] LABS: MANUAL DIFF NO %
[2016-11-20 04:43] LABS: ALBUMIN 3.1 G/DL (3.5-5.0); CHLORIDE, SERUM 99 MMOL/L (96-112); CO2 (CARBON DIOXIDE) 27 MMOL/L (24-34); PHOSPHORUS, SERUM 4.8 MG/DL (2.5-4.5); POTASSIUM, SERUM 4.7 MMOL/L (3.5-5.3); SODIUM, SERUM 137 MMOL/L (135-148)
[2016-11-20 04:44] LABS: BUN (BLOOD UREA NITROGEN) 71 MG/DL (6-23); GFR AFRICAN AMERICAN 5 ML/MIN (>=60); GFR NON AFRICAN AMERICAN 5 ML/MIN (>=60); GLUCOSE, SERUM 102 MG/DL (60-99)
[2016-11-21 04:49] LABS: BASOPHILS 0.1 %; BASOPHILS ABSOLUTE 0.01 10/3/uL (0.0-0.16); EOSINOPHILS 3.8 %; EOSINOPHILS ABSOLUTE 0.32 10/3/uL (0.0-0.53); HEMATOCRIT 37.3 % (40.0-51.0); HEMOGLOBIN 11.5 g/dL (13.6-17.8); IMMATURE GRANULOCYTES 1.3 %; IMMATURE GRANULOCYTES ABSOLUTE 0.11 10/3/uL (0.0-0.11); LYMPHOCYTES 9.1 %; LYMPHOCYTES ABSOLUTE 0.76 10/3/uL (0.67-4.30); MEAN CORPUS HGB CONC 30.8 g/dL (32.0-36.0); MEAN CORPUSCULAR HEMOGLOB 28.5 pg (26.0-34.0); MEAN CORPUSCULAR VOLUME 92.3 fL (80-100); MEAN PLATELET VOLUME 10.1 fL (9.2-13.0); MONOCYTES ABSOLUTE 0.25 10/3/uL (0.21-1.20); NEUTROPHILS 82.7 %; NEUTROPHILS ABSOLUTE 6.88 10/3/uL (2.02-8.40); PLATELET COUNT 178 10/3/uL (150-400); RED CELL COUNT 4.04 10/6/uL (4.7-6.1); WHITE BLOOD CELLS 8.3 10/3/uL (4.5-10.5)
[2016-11-21 04:51] LABS: MANUAL DIFF NO %
[2016-11-21 05:02] LABS: BUN (BLOOD UREA NITROGEN) 95 MG/DL (6-23); CHLORIDE, SERUM 99 MMOL/L (96-112); CO2 (CARBON DIOXIDE) 25 MMOL/L (24-34); GFR AFRICAN AMERICAN 4 ML/MIN (>=60); GFR NON AFRICAN AMERICAN 4 ML/MIN (>=60); GLUCOSE, SERUM 82 MG/DL (60-99); PHOSPHORUS, SERUM 5.6 MG/DL (2.5-4.5); POTASSIUM, SERUM 4.8 MMOL/L (3.5-5.3); SODIUM, SERUM 137 MMOL/L (135-148)
[2016-11-22 04:29] LABS: BASOPHILS 0.1 %; BASOPHILS ABSOLUTE 0.01 10/3/uL (0.0-0.16); EOSINOPHILS 4.4 %; EOSINOPHILS ABSOLUTE 0.53 10/3/uL (0.0-0.53); HEMOGLOBIN 10.9 g/dL (13.6-17.8); IMMATURE GRANULOCYTES 0.5 %; IMMATURE GRANULOCYTES ABSOLUTE 0.06 10/3/uL (0.0-0.11); LYMPHOCYTES 5.2 %; LYMPHOCYTES ABSOLUTE 0.62 10/3/uL (0.67-4.30); MEAN CORPUS HGB CONC 30.3 g/dL (32.0-36.0); MEAN CORPUSCULAR HEMOGLOB 28.3 pg (26.0-34.0); MEAN CORPUSCULAR VOLUME 93.5 fL (80-100); MEAN PLATELET VOLUME 10.9 fL (9.2-13.0); MONOCYTES 2.7 %; MONOCYTES ABSOLUTE 0.33 10/3/uL (0.21-1.20); NEUTROPHILS 87.1 %; NEUTROPHILS ABSOLUTE 10.48 10/3/uL (2.02-8.40); PLATELET COUNT 171 10/3/uL (150-400); RBC DISTRIBUTION WIDTH 16.8 % (12.0-16.0); RED CELL COUNT 3.85 10/6/uL (4.7-6.1)
[2016-11-22 04:30] LABS: MANUAL DIFF NO %
[2016-11-22 04:58] LABS: CHLORIDE, SERUM 100 MMOL/L (96-112); CO2 (CARBON DIOXIDE) 21 MMOL/L (24-34); GLUCOSE, SERUM 89 MG/DL (60-99); SODIUM, SERUM 136 MMOL/L (135-148); VANCOMYCIN TROUGH 20.5 MCG/ML (10.0-20.0)
[2016-11-22 05:06] LABS: BUN (BLOOD UREA NITROGEN) 112 MG/DL (6-23); GFR AFRICAN AMERICAN 4 ML/MIN (>=60); GFR NON AFRICAN AMERICAN 3 ML/MIN (>=60); PHOSPHORUS, SERUM 6.6 MG/DL (2.5-4.5); POTASSIUM, SERUM 5.9 MMOL/L (3.5-5.3)
[2016-11-22 06:09] LABS: PROCALCITONIN 1.56 ng/mL (<0.5)
[2016-11-22 10:39] LABS: ALLENS TEST Pos; BE (BASE EXCESS) -2.5 MEQ/L (0 +/- 2.5); CARBOXYHEMOGLOBIN 1.6 % (0-3); DEVICE HFNC; HCO3 (ACTUAL BICARBONATE) 24.6 MEQ/L (23-27); HEMOBLOGIN CONTENT 11.4 G/DL (14-18); INSTRUMENT SERIAL # 35151; METHEMOGLOBIN 0.3 % (0-3); O2 CONTENT 13.7 VOL% (18-24); PCO2 (CO2 TENSION) 53 MMHG (35-45); PO2 (O2 TENSION) 61 MMHG (79-93); SAMPLE Arterial; pH 7.29 (7.37-7.43)
[2016-11-23 04:07] LABS: HEMATOCRIT 31.3 % (40.0-51.0); HEMOGLOBIN 9.6 g/dL (13.6-17.8); MANUAL DIFF YES %; MEAN CORPUS HGB CONC 30.7 g/dL (32.0-36.0); MEAN CORPUSCULAR HEMOGLOB 28.8 pg (26.0-34.0); MEAN PLATELET VOLUME 10.3 fL (9.2-13.0); PLATELET COUNT 132 10/3/uL (150-400); RBC DISTRIBUTION WIDTH 17.1 % (12.0-16.0); RED CELL COUNT 3.33 10/6/uL (4.7-6.1); WHITE BLOOD CELLS 10.8 10/3/uL (4.5-10.5)
[2016-11-23 04:27] LABS: ALBUMIN 2.8 G/DL (3.5-5.0); CALCIUM, SERUM 7.5 MG/DL (8.5-10.4); CHLORIDE, SERUM 98 MMOL/L (96-112); CO2 (CARBON DIOXIDE) 23 MMOL/L (24-34); POTASSIUM, SERUM 4.8 MMOL/L (3.5-5.3); SODIUM, SERUM 134 MMOL/L (135-148)
[2016-11-23 04:28] LABS: SEGMENTED NEUTROPHIL (0) 88 %; TOTAL NUCLEATED CELLS 100
[2016-11-23 04:29] LABS: ANISOCYTOSIS 1+ (5-10/OIF) (0-5/OIF); BAND NEUTROPHILS 6 %; BUN (BLOOD UREA NITROGEN) 80 MG/DL (6-23); GFR AFRICAN AMERICAN 5 ML/MIN (>=60); GFR NON AFRICAN AMERICAN 4 ML/MIN (>=60); GLUCOSE, SERUM 110 MG/DL (60-99); LYMPHOCYTES 6 %; LYMPHOCYTES ABSOLUTE (CALC) 0.65 10/3/uL (0.67-4.30); NEUTROPHILS ABSOLUTE (CALC) 10.15 10/3/uL (2.02-8.40); PHOSPHORUS, SERUM 5.6 MG/DL (2.5-4.5); PLATELET ESTIMATE SLT DEC (ADEQUATE); SCHISTOCYTES OCC (0-2/OIF); TEARDROP SHAPED RBCS FEW (3-10/OIF)
[2016-11-24 10:03] LABS: HEMATOCRIT 28.3 % (40.0-51.0); HEMOGLOBIN 8.7 g/dL (13.6-17.8); MEAN CORPUS HGB CONC 30.7 g/dL (32.0-36.0); MEAN CORPUSCULAR HEMOGLOB 28.4 pg (26.0-34.0); MEAN CORPUSCULAR VOLUME 92.5 fL (80-100); MEAN PLATELET VOLUME 9.3 fL (9.2-13.0); PLATELET COUNT 130 10/3/uL (150-400); RED CELL COUNT 3.06 10/6/uL (4.7-6.1); WHITE BLOOD CELLS 11.3 10/3/uL (4.5-10.5)
[2016-11-24 10:04] LABS: MANUAL DIFF YES %
[2016-11-24 10:17] LABS: ALBUMIN 2.9 G/DL (3.5-5.0); CALCIUM, SERUM 7.2 MG/DL (8.5-10.4); CHLORIDE, SERUM 94 MMOL/L (96-112); CO2 (CARBON DIOXIDE) 24 MMOL/L (24-34); GFR AFRICAN AMERICAN 4 ML/MIN (>=60); GFR NON AFRICAN AMERICAN 3 ML/MIN (>=60); GLUCOSE, SERUM 97 MG/DL (60-99); PHOSPHORUS, SERUM 5.8 MG/DL (2.5-4.5); SODIUM, SERUM 132 MMOL/L (135-148)
[2016-11-24 10:18] LABS: BUN (BLOOD UREA NITROGEN) 97 MG/DL (6-23)
[2016-11-24 10:25] LABS: ANISOCYTOSIS 1+ (5-10/OIF) (0-5/OIF); BAND NEUTROPHILS 6 %; BASOPHILS 1 %; BASOPHILS ABSOLUTE (CALC) 0.11 10/3/uL (0.0-0.16); EOSINOPHILS 2 %; EOSINOPHILS ABSOLUTE (CALC) 0.23 10/3/uL (0.0-0.53); LYMPHOCYTES 2 %; LYMPHOCYTES ABSOLUTE (CALC) 0.23 10/3/uL (0.67-4.30); MONOCYTES 6 %; MONOCYTES ABSOLUTE (CALC) 0.68 10/3/uL (0.21-1.20); NEUTROPHILS ABSOLUTE (CALC) 10.06 10/3/uL (2.02-8.40); PLATELET ESTIMATE SLT DEC (ADEQUATE); POIKILOCYTOSIS 1+ (5-10/OIF) (0-5/OIF); SCHISTOCYTES FEW (3-10/OIF); SEGMENTED NEUTROPHIL (0) 83 %; TOTAL NUCLEATED CELLS 100
[2016-11-24 10:26] LABS: MACROCYTES 1+ (5-10/OIF) (0-5/OIF)
[2016-11-24 21:24] LABS: ALLENS TEST Pos; BE (BASE EXCESS) -3.3 MEQ/L (0 +/- 2.5); CARBOXYHEMOGLOBIN 1.1 % (0-3); HCO3 (ACTUAL BICARBONATE) 26.2 MEQ/L (23-27); HEMOBLOGIN CONTENT 9.8 G/DL (14-18); INSTRUMENT SERIAL # 35151; METHEMOGLOBIN 0.3 % (0-3); MODE CMV; O2 CONTENT 13.9 VOL% (18-24); OPERATOR ID 13861; PCO2 (CO2 TENSION) 76 MMHG (35-45); PO2 (O2 TENSION) 213 MMHG (79-93); SAMPLE Arterial; TIDAL VOLUME 400 ML; pH 7.16 (7.37-7.43)
[2016-11-24 21:57] LABS: HEMATOCRIT 29.9 % (40.0-51.0); HEMOGLOBIN 9.3 g/dL (13.6-17.8); MEAN CORPUS HGB CONC 31.1 g/dL (32.0-36.0); MEAN CORPUSCULAR VOLUME 93.1 fL (80-100); MEAN PLATELET VOLUME 10.4 fL (9.2-13.0); PLATELET COUNT 147 10/3/uL (150-400); RED CELL COUNT 3.21 10/6/uL (4.7-6.1); WHITE BLOOD CELLS 14.5 10/3/uL (4.5-10.5)
[2016-11-24 22:00] LABS: MANUAL DIFF YES %
[2016-11-24 22:09] LABS: ALBUMIN 2.9 G/DL (3.5-5.0); CHLORIDE, SERUM 98 MMOL/L (96-112); CO2 (CARBON DIOXIDE) 27 MMOL/L (24-34); POTASSIUM, SERUM 4.7 MMOL/L (3.5-5.3); SODIUM, SERUM 135 MMOL/L (135-148)
[2016-11-24 22:11] LABS: BUN (BLOOD UREA NITROGEN) 66 MG/DL (6-23); CALCIUM, SERUM 6.9 MG/DL (8.5-10.4); GFR AFRICAN AMERICAN 6 ML/MIN (>=60); GFR NON AFRICAN AMERICAN 5 ML/MIN (>=60); GLUCOSE, SERUM 137 MG/DL (60-99); PHOSPHORUS, SERUM 4.8 MG/DL (2.5-4.5)
[2016-11-24 22:15] LABS: BAND NEUTROPHILS 6 %; EOSINOPHILS 2 %; EOSINOPHILS ABSOLUTE (CALC) 0.29 10/3/uL (0.0-0.53); HYPOCHROMIA 1+ (3-10/OIF) (0-2/OIF); LYMPHOCYTES 6 %; LYMPHOCYTES ABSOLUTE (CALC) 0.87 10/3/uL (0.67-4.30); MONOCYTES 6 %; MONOCYTES ABSOLUTE (CALC) 0.87 10/3/uL (0.21-1.20); NEUTROPHILS ABSOLUTE (CALC) 12.47 10/3/uL (2.02-8.40); PLATELET ESTIMATE SLT DEC (ADEQUATE); SEGMENTED NEUTROPHIL (0) 80 %; TOTAL NUCLEATED CELLS 100
[2016-11-24 22:16] LABS: ANISOCYTOSIS 1+ (5-10/OIF) (0-5/OIF); OVALOCYTES 1+ (3-10/OIF) (0-2/OIF); SPHEROCYTES FEW (3-10/OIF)
[2016-11-24 22:17] LABS: GIANT PLATELET RARE; TEARDROP SHAPED RBCS OCC (0-2/OIF)
[2016-11-24 23:00] LABS: ALLENS TEST Pos; BE (BASE EXCESS) -0.9 MEQ/L (0 +/- 2.5); CARBOXYHEMOGLOBIN 1.3 % (0-3); HEMOBLOGIN CONTENT 9.2 G/DL (14-18); INSTRUMENT SERIAL # 35151; METHEMOGLOBIN 0.3 % (0-3); MODE CMV; OPERATOR ID 13861; PCO2 (CO2 TENSION) 64 MMHG (35-45); PO2 (O2 TENSION) 188 MMHG (79-93); SAMPLE Arterial; TIDAL VOLUME 500 ML; pH 7.25 (7.37-7.43)
[2016-11-25 04:17] LABS: ALLENS TEST Pos; BE (BASE EXCESS) -0.4 MEQ/L (0 +/- 2.5); CARBOXYHEMOGLOBIN 1.4 % (0-3); INSTRUMENT SERIAL # 35151; METHEMOGLOBIN 0.3 % (0-3); MODE CMV; O2 CONTENT 13.1 VOL% (18-24); OPERATOR ID 32193; PCO2 (CO2 TENSION) 67 MMHG (35-45); PO2 (O2 TENSION) 84 MMHG (79-93); SAMPLE Arterial; TIDAL VOLUME 500 ML; pH 7.24 (7.37-7.43)
[2016-11-25 04:25] LABS: HEMATOCRIT 31.9 % (40.0-51.0); HEMOGLOBIN 9.3 g/dL (13.6-17.8); MEAN CORPUSCULAR HEMOGLOB 27.8 pg (26.0-34.0); MEAN CORPUSCULAR VOLUME 95.5 fL (80-100); MEAN PLATELET VOLUME 10.2 fL (9.2-13.0); PLATELET COUNT 143 10/3/uL (150-400); RED CELL COUNT 3.34 10/6/uL (4.7-6.1); WHITE BLOOD CELLS 12.2 10/3/uL (4.5-10.5)
[2016-11-25 04:27] LABS: MANUAL DIFF YES %; MEAN CORPUS HGB CONC 29.2 g/dL (32.0-36.0)
[2016-11-25 04:34] LABS: ALBUMIN 2.8 G/DL (3.5-5.0); BUN (BLOOD UREA NITROGEN) 64 MG/DL (6-23); CALCIUM, SERUM 7.6 MG/DL (8.5-10.4); CHLORIDE, SERUM 99 MMOL/L (96-112); CO2 (CARBON DIOXIDE) 27 MMOL/L (24-34); GFR AFRICAN AMERICAN 5 ML/MIN (>=60); GFR NON AFRICAN AMERICAN 5 ML/MIN (>=60); GLUCOSE, SERUM 76 MG/DL (60-99); PHOSPHORUS, SERUM 4.8 MG/DL (2.5-4.5); POTASSIUM, SERUM 4.6 MMOL/L (3.5-5.3); SODIUM, SERUM 136 MMOL/L (135-148)
[2016-11-25 05:37] LABS: BAND NEUTROPHILS 6 %; EOSINOPHILS 6 %; EOSINOPHILS ABSOLUTE (CALC) 0.73 10/3/uL (0.0-0.53); LYMPHOCYTES 1 %; LYMPHOCYTES ABSOLUTE (CALC) 0.12 10/3/uL (0.67-4.30); MONOCYTES 6 %; MONOCYTES ABSOLUTE (CALC) 0.73 10/3/uL (0.21-1.20); NEUTROPHILS ABSOLUTE (CALC) 10.61 10/3/uL (2.02-8.40); PLATELET ESTIMATE ADQ (ADEQUATE); SEGMENTED NEUTROPHIL (0) 81 %; TOTAL NUCLEATED CELLS 100
[2016-11-25 05:38] LABS: ANISOCYTOSIS 1+ (5-10/OIF) (0-5/OIF)
[2016-11-25 11:01] LABS: ALLENS TEST Pos; BE (BASE EXCESS) -3.2 MEQ/L (0 +/- 2.5); CARBOXYHEMOGLOBIN 1.3 % (0-3); HCO3 (ACTUAL BICARBONATE) 22.8 MEQ/L (23-27); HEMOBLOGIN CONTENT 9.8 G/DL (14-18); INSTRUMENT SERIAL # 35151; METHEMOGLOBIN 0.1 % (0-3); MODE A/C; O2 CONTENT 12.9 VOL% (18-24); PCO2 (CO2 TENSION) 45 MMHG (35-45); PO2 (O2 TENSION) 77 MMHG (79-93); SAMPLE Arterial; TIDAL VOLUME 500 ML; pH 7.32 (7.37-7.43)
[2016-11-25 17:02] LABS: A/G RATIO 0.7 (0.7-1.9); ALBUMIN 2.5 G/DL (3.5-5.0); ALKALINE PHOSPHATASE 100 U/L (45-117); BUN (BLOOD UREA NITROGEN) 65 MG/DL (6-23); CALCIUM, SERUM 7.4 MG/DL (8.5-10.4); CHLORIDE, SERUM 98 MMOL/L (96-112); GLOBULIN 3.6 G/DL (2.5-4.1); GLUCOSE, SERUM 78 MG/DL (60-99); PREALBUMIN 31.5 MG/DL (17.0-43.0); SGPT(ALT) 61 U/L (5-65); SODIUM, SERUM 134 MMOL/L (135-148); TOTAL BILIRUBIN 0.6 MG/DL (0-1.2); TOTAL PROTEIN 6.1 G/DL (6.0-8.5)
[2016-11-25 17:03] LABS: CO2 (CARBON DIOXIDE) 18 MMOL/L (24-34); GFR AFRICAN AMERICAN 5 ML/MIN (>=60); GFR NON AFRICAN AMERICAN 4 ML/MIN (>=60); SGOT(AST) 67 U/L (5-40)
[2016-11-25 17:04] LABS: POTASSIUM, SERUM 6.3 MMOL/L (3.5-5.3)
[2016-11-26 04:07] LABS: ALLENS TEST Pos; BE (BASE EXCESS) 1.1 MEQ/L (0 +/- 2.5); CARBOXYHEMOGLOBIN 1.4 % (0-3); HCO3 (ACTUAL BICARBONATE) 27.1 MEQ/L (23-27); HEMOBLOGIN CONTENT 9.5 G/DL (14-18); INSTRUMENT SERIAL # 35151; METHEMOGLOBIN 0.3 % (0-3); MODE CMV; O2 CONTENT 12.1 VOL% (18-24); OPERATOR ID 23712; PCO2 (CO2 TENSION) 50 MMHG (35-45); PO2 (O2 TENSION) 67 MMHG (79-93); SAMPLE Arterial; TIDAL VOLUME 500 ML; pH 7.36 (7.37-7.43)
[2016-11-26 04:28] LABS: BASOPHILS 0.2 %; BASOPHILS ABSOLUTE 0.02 10/3/uL (0.0-0.16); EOSINOPHILS 1.8 %; EOSINOPHILS ABSOLUTE 0.19 10/3/uL (0.0-0.53); HEMOGLOBIN 8.7 g/dL (13.6-17.8); IMMATURE GRANULOCYTES 0.3 %; IMMATURE GRANULOCYTES ABSOLUTE 0.03 10/3/uL (0.0-0.11); LYMPHOCYTES 5.2 %; LYMPHOCYTES ABSOLUTE 0.56 10/3/uL (0.67-4.30); MEAN CORPUSCULAR HEMOGLOB 28.3 pg (26.0-34.0); MEAN PLATELET VOLUME 10.4 fL (9.2-13.0); MONOCYTES 3.4 %; MONOCYTES ABSOLUTE 0.36 10/3/uL (0.21-1.20); NEUTROPHILS 89.1 %; NEUTROPHILS ABSOLUTE 9.57 10/3/uL (2.02-8.40); PLATELET COUNT 180 10/3/uL (150-400); RED CELL COUNT 3.07 10/6/uL (4.7-6.1); WHITE BLOOD CELLS 10.7 10/3/uL (4.5-10.5)
[2016-11-26 04:37] LABS: HEMATOCRIT 28.2 % (40.0-51.0); MEAN CORPUS HGB CONC 30.9 g/dL (32.0-36.0); MEAN CORPUSCULAR VOLUME 91.9 fL (80-100)
[2016-11-26 04:38] LABS: MANUAL DIFF NO %
[2016-11-26 04:52] LABS: ALBUMIN 2.4 G/DL (3.5-5.0); ALKALINE PHOSPHATASE 97 U/L (45-117); BUN (BLOOD UREA NITROGEN) 80 MG/DL (6-23); CALCIUM, SERUM 7.5 MG/DL (8.5-10.4); CHLORIDE, SERUM 95 MMOL/L (96-112); CO2 (CARBON DIOXIDE) 24 MMOL/L (24-34); DIRECT BILIRUBIN 0.2 MG/DL (0.0-0.4); GFR AFRICAN AMERICAN 4 ML/MIN (>=60); GFR NON AFRICAN AMERICAN 4 ML/MIN (>=60); GLUCOSE, SERUM 105 MG/DL (60-99); INDIRECT BILIRUBIN(NOT ORDER) 0.8 MG/DL (0.1-0.9); PHOSPHORUS, SERUM 5.4 MG/DL (2.5-4.5); POTASSIUM, SERUM 4.8 MMOL/L (3.5-5.3); SGOT(AST) 25 U/L (5-40); SGPT(ALT) 45 U/L (5-65); SODIUM, SERUM 136 MMOL/L (135-148); TOTAL PROTEIN 5.9 G/DL (6.0-8.5); TROPONIN I <0.02 NG/ML (<0.05)
[2016-11-26 05:18] LABS: INTERNATIONAL NORMAL RATI 1.2 UNITS (-); PROTIME (NOT ORD) 14.7 SEC (12.0-14.5)
[2016-11-26 19:51] LABS: BD FL LYMPH (NOT ORD) 2 %; BD FL SOURCE (NOT ORD) BAL; BF LARGE MONONUCLEAR 22 %; BF TOTAL CELL CT (NOT ORD 660 /MM3; BODY FLUID EOS (NOT ORD) 0 %; BODY FLUID RBC (NOT ORD) 1000 /MM3; BODY FLUID SEG (NOT ORD) 76 %
[2016-11-27 03:34] LABS: ALLENS TEST Pos; CARBOXYHEMOGLOBIN 1.1 % (0-3); HCO3 (ACTUAL BICARBONATE) 26.5 MEQ/L (23-27); HEMOBLOGIN CONTENT 9.2 G/DL (14-18); INSTRUMENT SERIAL # 35151; METHEMOGLOBIN 0.3 % (0-3); MODE CMV; O2 CONTENT 12.2 VOL% (18-24); OPERATOR ID 31061; PCO2 (CO2 TENSION) 41 MMHG (35-45); PO2 (O2 TENSION) 81 MMHG (79-93); SAMPLE Arterial; TIDAL VOLUME 500 ML; pH 7.43 (7.37-7.43)
[2016-11-27 04:34] LABS: INTERNATIONAL NORMAL RATI 1.2 UNITS (-); PROTIME (NOT ORD) 14.7 SEC (12.0-14.5)
[2016-11-27 04:36] LABS: HEMATOCRIT 28.1 % (40.0-51.0); HEMOGLOBIN 8.4 g/dL (13.6-17.8); MEAN CORPUS HGB CONC 29.9 g/dL (32.0-36.0); MEAN CORPUSCULAR HEMOGLOB 28.1 pg (26.0-34.0); MEAN PLATELET VOLUME 10.1 fL (9.2-13.0); PLATELET COUNT 187 10/3/uL (150-400); RED CELL COUNT 2.99 10/6/uL (4.7-6.1); WHITE BLOOD CELLS 10.5 10/3/uL (4.5-10.5)
[2016-11-27 04:42] LABS: MANUAL DIFF YES %
[2016-11-27 04:48] LABS: ALBUMIN 2.3 G/DL (3.5-5.0); CALCIUM, SERUM 7.5 MG/DL (8.5-10.4); CHLORIDE, SERUM 100 MMOL/L (96-112); CO2 (CARBON DIOXIDE) 25 MMOL/L (24-34); DIRECT BILIRUBIN 0.2 MG/DL (0.0-0.4); GLUCOSE, SERUM 109 MG/DL (60-99); INDIRECT BILIRUBIN(NOT ORDER) 0.6 MG/DL (0.1-0.9); SGOT(AST) 19 U/L (5-40); SGPT(ALT) 36 U/L (5-65); SODIUM, SERUM 138 MMOL/L (135-148); TOTAL BILIRUBIN 0.8 MG/DL (0-1.2)
[2016-11-27 04:50] LABS: ALKALINE PHOSPHATASE 85 U/L (45-117); BUN (BLOOD UREA NITROGEN) 51 MG/DL (6-23); CREATININE 9.36 MG/DL (0.70-1.30); GFR AFRICAN AMERICAN 7 ML/MIN (>=60); GFR NON AFRICAN AMERICAN 6 ML/MIN (>=60); POTASSIUM, SERUM 3.8 MMOL/L (3.5-5.3)
[2016-11-27 05:12] LABS: ANISOCYTOSIS 1+ (5-10/OIF) (0-5/OIF); BAND NEUTROPHILS 19 %; EOSINOPHILS 3 %; EOSINOPHILS ABSOLUTE (CALC) 0.32 10/3/uL (0.0-0.53); LYMPHOCYTES 2 %; LYMPHOCYTES ABSOLUTE (CALC) 0.21 10/3/uL (0.67-4.30); MONOCYTES 3 %; MONOCYTES ABSOLUTE (CALC) 0.32 10/3/uL (0.21-1.20); NEUTROPHILS ABSOLUTE (CALC) 9.66 10/3/uL (2.02-8.40); PLATELET ESTIMATE ADQ (ADEQUATE); SEGMENTED NEUTROPHIL (0) 73 %; TOTAL NUCLEATED CELLS 100
[2016-11-27 14:02] LABS: ALLENS TEST Pos; BE (BASE EXCESS) 1.8 MEQ/L (0 +/- 2.5); CARBOXYHEMOGLOBIN 0.9 % (0-3); HCO3 (ACTUAL BICARBONATE) 28.7 MEQ/L (23-27); HEMOBLOGIN CONTENT 9.1 G/DL (14-18); INSTRUMENT SERIAL # 35151; METHEMOGLOBIN 0.2 % (0-3); MODE CMV; O2 CONTENT 12.2 VOL% (18-24); PCO2 (CO2 TENSION) 58 MMHG (35-45); PO2 (O2 TENSION) 90 MMHG (79-93); SAMPLE Arterial; TIDAL VOLUME 340 ML; pH 7.32 (7.37-7.43)
[2016-11-27 17:47] LABS: ALLENS TEST Pos; BE (BASE EXCESS) -0.5 MEQ/L (0 +/- 2.5); CARBOXYHEMOGLOBIN 1.2 % (0-3); HCO3 (ACTUAL BICARBONATE) 25.6 MEQ/L (23-27); HEMOBLOGIN CONTENT 9.5 G/DL (14-18); INSTRUMENT SERIAL # 35151; METHEMOGLOBIN 0.3 % (0-3); MODE CMV; O2 CONTENT 12.9 VOL% (18-24); PCO2 (CO2 TENSION) 49 MMHG (35-45); PO2 (O2 TENSION) 107 MMHG (79-93); SAMPLE Arterial; TIDAL VOLUME 340 ML; pH 7.33 (7.37-7.43)
[2016-11-28 03:16] LABS: ALLENS TEST Pos; BE (BASE EXCESS) -1.1 MEQ/L (0 +/- 2.5); CARBOXYHEMOGLOBIN 1.6 % (0-3); HCO3 (ACTUAL BICARBONATE) 25.5 MEQ/L (23-27); HEMOBLOGIN CONTENT 8.4 G/DL (14-18); INSTRUMENT SERIAL # 35151; METHEMOGLOBIN 0.2 % (0-3); MODE CMV; O2 CONTENT 10.5 VOL% (18-24); OPERATOR ID 13861; PCO2 (CO2 TENSION) 53 MMHG (35-45); PO2 (O2 TENSION) 66 MMHG (79-93); SAMPLE Arterial; TIDAL VOLUME 340 ML
[2016-11-28 04:18] LABS: HEMATOCRIT 27.7 % (40.0-51.0); HEMOGLOBIN 8.2 g/dL (13.6-17.8); MEAN CORPUS HGB CONC 29.6 g/dL (32.0-36.0); MEAN CORPUSCULAR HEMOGLOB 27.8 pg (26.0-34.0); MEAN CORPUSCULAR VOLUME 93.9 fL (80-100); MEAN PLATELET VOLUME 10.2 fL (9.2-13.0); PLATELET COUNT 202 10/3/uL (150-400); RBC DISTRIBUTION WIDTH 16.8 % (12.0-16.0); RED CELL COUNT 2.95 10/6/uL (4.7-6.1); WHITE BLOOD CELLS 10.7 10/3/uL (4.5-10.5)
[2016-11-28 04:20] LABS: MANUAL DIFF YES %
[2016-11-28 04:29] LABS: INTERNATIONAL NORMAL RATI 1.2 UNITS (-)
[2016-11-28 04:43] LABS: ALBUMIN 2.4 G/DL (3.5-5.0); ALKALINE PHOSPHATASE 81 U/L (45-117); CALCIUM, SERUM 7.6 MG/DL (8.5-10.4); CHLORIDE, SERUM 98 MMOL/L (96-112); CO2 (CARBON DIOXIDE) 27 MMOL/L (24-34); DIRECT BILIRUBIN 0.3 MG/DL (0.0-0.4); INDIRECT BILIRUBIN(NOT ORDER) 0.7 MG/DL (0.1-0.9); POTASSIUM, SERUM 4.3 MMOL/L (3.5-5.3); SGOT(AST) 12 U/L (5-40); SGPT(ALT) 32 U/L (5-65); SODIUM, SERUM 137 MMOL/L (135-148); TOTAL PROTEIN 6.1 G/DL (6.0-8.5)
[2016-11-28 04:44] LABS: BUN (BLOOD UREA NITROGEN) 65 MG/DL (6-23); GFR AFRICAN AMERICAN 5 ML/MIN (>=60); GFR NON AFRICAN AMERICAN 4 ML/MIN (>=60); GLUCOSE, SERUM 78 MG/DL (60-99); PHOSPHORUS, SERUM 6.5 MG/DL (2.5-4.5)
[2016-11-28 05:01] LABS: BAND NEUTROPHILS 16 %; BASOPHILS 1 %; BASOPHILS ABSOLUTE (CALC) 0.11 10/3/uL (0.0-0.16); LYMPHOCYTES 5 %; LYMPHOCYTES ABSOLUTE (CALC) 0.54 10/3/uL (0.67-4.30); MONOCYTES 5 %; MONOCYTES ABSOLUTE (CALC) 0.54 10/3/uL (0.21-1.20); NEUTROPHILS ABSOLUTE (CALC) 9.52 10/3/uL (2.02-8.40); SEGMENTED NEUTROPHIL (0) 73 %; TOTAL NUCLEATED CELLS 100
[2016-11-28 05:02] LABS: ANISOCYTOSIS 1+ (5-10/OIF) (0-5/OIF); PLATELET ESTIMATE ADQ (ADEQUATE)
[2016-11-28 13:05] LABS: TRIGLYCERIDE 108 MG/DL (< 150)
[2016-11-28 13:13] LABS: PREALBUMIN 23.6 MG/DL (17.0-43.0)
[2016-11-29 03:30] LABS: HEMOGLOBIN 8.9 g/dL (13.6-17.8); MEAN CORPUS HGB CONC 28.9 g/dL (32.0-36.0); MEAN CORPUSCULAR HEMOGLOB 27.2 pg (26.0-34.0); MEAN CORPUSCULAR VOLUME 94.2 fL (80-100); MEAN PLATELET VOLUME 9.8 fL (9.2-13.0); RBC DISTRIBUTION WIDTH 16.6 % (12.0-16.0); RED CELL COUNT 3.27 10/6/uL (4.7-6.1); WHITE BLOOD CELLS 14.2 10/3/uL (4.5-10.5)
[2016-11-29 03:37] LABS: HEMATOCRIT 30.8 % (40.0-51.0); MANUAL DIFF YES %; PLATELET COUNT 269 10/3/uL (150-400)
[2016-11-29 03:44] LABS: INTERNATIONAL NORMAL RATI 1.2 UNITS (-); PARTIAL THROMBO TIME 41.6 SEC (22.5-37.2); PROTIME (NOT ORD) 15.2 SEC (12.0-14.5)
[2016-11-29 03:46] LABS: ALBUMIN 2.6 G/DL (3.5-5.0); ALKALINE PHOSPHATASE 91 U/L (45-117); CALCIUM, SERUM 7.2 MG/DL (8.5-10.4); CHLORIDE, SERUM 94 MMOL/L (96-112); CO2 (CARBON DIOXIDE) 24 MMOL/L (24-34); DIRECT BILIRUBIN 0.3 MG/DL (0.0-0.4); INDIRECT BILIRUBIN(NOT ORDER) 0.7 MG/DL (0.1-0.9); SGOT(AST) 13 U/L (5-40); SGPT(ALT) 32 U/L (5-65); SODIUM, SERUM 135 MMOL/L (135-148); TOTAL PROTEIN 7.3 G/DL (6.0-8.5)
[2016-11-29 03:51] LABS: BUN (BLOOD UREA NITROGEN) 94 MG/DL (6-23); GFR AFRICAN AMERICAN 4 ML/MIN (>=60); GFR NON AFRICAN AMERICAN 4 ML/MIN (>=60); GLUCOSE, SERUM 119 MG/DL (60-99); POTASSIUM, SERUM 5.5 MMOL/L (3.5-5.3)
[2016-11-29 04:06] LABS: ANISOCYTOSIS 1+ (5-10/OIF) (0-5/OIF); BAND NEUTROPHILS 5 %; BASOPHILS 2 %; BASOPHILS ABSOLUTE (CALC) 0.28 10/3/uL (0.0-0.16); EOSINOPHILS 1 %; EOSINOPHILS ABSOLUTE (CALC) 0.14 10/3/uL (0.0-0.53); LYMPHOCYTES 5 %; LYMPHOCYTES ABSOLUTE (CALC) 0.71 10/3/uL (0.67-4.30); MONOCYTES 6 %; MONOCYTES ABSOLUTE (CALC) 0.85 10/3/uL (0.21-1.20); NEUTROPHILS ABSOLUTE (CALC) 12.21 10/3/uL (2.02-8.40); SEGMENTED NEUTROPHIL (0) 81 %; TOTAL NUCLEATED CELLS 100
[2016-11-29 04:07] LABS: HYPOCHROMIA 1+ (3-10/OIF) (0-2/OIF); POIKILOCYTOSIS 1+ (5-10/OIF) (0-5/OIF); SCHISTOCYTES FEW (3-10/OIF)
[2016-11-29 04:08] LABS: PLATELET ESTIMATE ADQ (ADEQUATE)
[2016-11-29 04:10] LABS: PHOSPHORUS, SERUM 10.3 MG/DL (2.5-4.5)
[2016-11-29 05:36] LABS: PROCALCITONIN 12.36 ng/mL (<0.5)
[2016-11-30 04:22] LABS: BASOPHILS 0.3 %; BASOPHILS ABSOLUTE 0.03 10/3/uL (0.0-0.16); EOSINOPHILS 1.7 %; EOSINOPHILS ABSOLUTE 0.16 10/3/uL (0.0-0.53); HEMATOCRIT 28.2 % (40.0-51.0); HEMOGLOBIN 8.3 g/dL (13.6-17.8); IMMATURE GRANULOCYTES 0.5 %; IMMATURE GRANULOCYTES ABSOLUTE 0.05 10/3/uL (0.0-0.11); LYMPHOCYTES 1.7 %; LYMPHOCYTES ABSOLUTE 0.16 10/3/uL (0.67-4.30); MEAN CORPUS HGB CONC 29.4 g/dL (32.0-36.0); MEAN CORPUSCULAR HEMOGLOB 27.9 pg (26.0-34.0); MEAN CORPUSCULAR VOLUME 94.6 fL (80-100); MEAN PLATELET VOLUME 9.5 fL (9.2-13.0); MONOCYTES 4.8 %; MONOCYTES ABSOLUTE 0.45 10/3/uL (0.21-1.20); NEUTROPHILS ABSOLUTE 8.53 10/3/uL (2.02-8.40); PLATELET COUNT 190 10/3/uL (150-400); RBC DISTRIBUTION WIDTH 16.9 % (12.0-16.0); RED CELL COUNT 2.98 10/6/uL (4.7-6.1); WHITE BLOOD CELLS 9.4 10/3/uL (4.5-10.5)
[2016-11-30 04:24] LABS: MANUAL DIFF NO %
[2016-11-30 04:56] LABS: ALBUMIN 2.4 G/DL (3.5-5.0); CALCIUM, SERUM 7.4 MG/DL (8.5-10.4); CHLORIDE, SERUM 101 MMOL/L (96-112); CO2 (CARBON DIOXIDE) 23 MMOL/L (24-34); GLUCOSE, SERUM 118 MG/DL (60-99); POTASSIUM, SERUM 4.5 MMOL/L (3.5-5.3); SODIUM, SERUM 139 MMOL/L (135-148)
[2016-11-30 05:00] LABS: BUN (BLOOD UREA NITROGEN) 85 MG/DL (6-23); GFR AFRICAN AMERICAN 6 ML/MIN (>=60); GFR NON AFRICAN AMERICAN 6 ML/MIN (>=60); PHOSPHORUS, SERUM 7.7 MG/DL (2.5-4.5)
[2016-11-30 05:20] LABS: BE (BASE EXCESS) -4.1 MEQ/L (0 +/- 2.5); HCO3 (ACTUAL BICARBONATE) 23.5 MEQ/L (23-27); INSTRUMENT SERIAL # 8083; PCO2 (CO2 TENSION) 57 MMHG (35-45); PO2 (O2 TENSION) 108 MMHG (79-93); pH 7.23 (7.37-7.43)
[2016-11-30 05:21] LABS: ALLENS TEST Pos; CARBOXYHEMOGLOBIN 1.7 % (0-3); HEMOBLOGIN CONTENT 8.1 G/DL (14-18); METHEMOGLOBIN 0.3 % (0-3); MODE CMV; OPERATOR ID 32193; SAMPLE Arterial; TIDAL VOLUME 340 ML
[2016-12-01 03:58] LABS: ALBUMIN 2.2 G/DL (3.5-5.0); CALCIUM, SERUM 7.5 MG/DL (8.5-10.4); CHLORIDE, SERUM 99 MMOL/L (96-112); CO2 (CARBON DIOXIDE) 22 MMOL/L (24-34); GFR AFRICAN AMERICAN 9 ML/MIN (>=60); GFR NON AFRICAN AMERICAN 7 ML/MIN (>=60); GLUCOSE, SERUM 129 MG/DL (60-99); PHOSPHORUS, SERUM 7.4 MG/DL (2.5-4.5); POTASSIUM, SERUM 4.9 MMOL/L (3.5-5.3); SODIUM, SERUM 137 MMOL/L (135-148)
[2016-12-01 04:06] LABS: BUN (BLOOD UREA NITROGEN) 73 MG/DL (6-23); CREATININE 7.42 MG/DL (0.70-1.30)
[2016-12-01 04:15] LABS: BASOPHILS 0.2 %; BASOPHILS ABSOLUTE 0.03 10/3/uL (0.0-0.16); EOSINOPHILS 0.2 %; EOSINOPHILS ABSOLUTE 0.03 10/3/uL (0.0-0.53); HEMOGLOBIN 9.6 g/dL (13.6-17.8); IMMATURE GRANULOCYTES 0.6 %; IMMATURE GRANULOCYTES ABSOLUTE 0.08 10/3/uL (0.0-0.11); LYMPHOCYTES 3.7 %; MEAN CORPUSCULAR HEMOGLOB 27.7 pg (26.0-34.0); MEAN CORPUSCULAR VOLUME 95.4 fL (80-100); MEAN PLATELET VOLUME 9.7 fL (9.2-13.0); MONOCYTES 1.5 %; MONOCYTES ABSOLUTE 0.21 10/3/uL (0.21-1.20); NEUTROPHILS 93.8 %; NEUTROPHILS ABSOLUTE 12.71 10/3/uL (2.02-8.40); PLATELET COUNT 182 10/3/uL (150-400); RED CELL COUNT 3.47 10/6/uL (4.7-6.1)
[2016-12-01 04:18] LABS: HEMATOCRIT 33.1 % (40.0-51.0); MANUAL DIFF NO %; WHITE BLOOD CELLS 13.6 10/3/uL (4.5-10.5)
[2016-12-01 04:55] LABS: ANISOCYTOSIS 1+ (5-10/OIF) (0-5/OIF); OVALOCYTES 1+ (3-10/OIF) (0-2/OIF); POIKILOCYTOSIS 1+ (5-10/OIF) (0-5/OIF); SCHISTOCYTES FEW (3-10/OIF)
[2016-12-01 07:13] LABS: PROCALCITONIN 31.06 ng/mL (<0.5)
[2016-12-02 08:49] LABS: BASOPHILS 0.1 %; BASOPHILS ABSOLUTE 0.01 10/3/uL (0.0-0.16); EOSINOPHILS 0.3 %; EOSINOPHILS ABSOLUTE 0.05 10/3/uL (0.0-0.53); HEMATOCRIT 32.3 % (40.0-51.0); HEMOGLOBIN 9.3 g/dL (13.6-17.8); IMMATURE GRANULOCYTES 0.6 %; LYMPHOCYTES 3.4 %; LYMPHOCYTES ABSOLUTE 0.53 10/3/uL (0.67-4.30); MEAN CORPUS HGB CONC 28.8 g/dL (32.0-36.0); MEAN CORPUSCULAR HEMOGLOB 27.6 pg (26.0-34.0); MEAN CORPUSCULAR VOLUME 95.8 fL (80-100); MEAN PLATELET VOLUME 10.7 fL (9.2-13.0); MONOCYTES 2.8 %; MONOCYTES ABSOLUTE 0.43 10/3/uL (0.21-1.20); NEUTROPHILS 92.8 %; NEUTROPHILS ABSOLUTE 14.31 10/3/uL (2.02-8.40); RBC DISTRIBUTION WIDTH 17.5 % (12.0-16.0); RED CELL COUNT 3.37 10/6/uL (4.7-6.1); WHITE BLOOD CELLS 15.4 10/3/uL (4.5-10.5)
[2016-12-02 08:50] LABS: MANUAL DIFF NO %; PLATELET COUNT 242 10/3/uL (150-400)
[2016-12-02 08:56] LABS: BUN (BLOOD UREA NITROGEN) 111 MG/DL (6-23); CHLORIDE, SERUM 95 MMOL/L (96-112); CO2 (CARBON DIOXIDE) 25 MMOL/L (24-34); CREATININE 9.49 MG/DL (0.70-1.30); GFR AFRICAN AMERICAN 6 ML/MIN (>=60); GFR NON AFRICAN AMERICAN 6 ML/MIN (>=60); GLUCOSE, SERUM 121 MG/DL (60-99); POTASSIUM, SERUM 5.4 MMOL/L (3.5-5.3); SODIUM, SERUM 136 MMOL/L (135-148)
[2016-12-02 19:36] LABS: CALCIUM, SERUM 7.6 MG/DL (8.5-10.4); CHLORIDE, SERUM 97 MMOL/L (96-112); GFR AFRICAN AMERICAN 6 ML/MIN (>=60); GFR NON AFRICAN AMERICAN 5 ML/MIN (>=60); GLUCOSE, SERUM 117 MG/DL (60-99); SODIUM, SERUM 136 MMOL/L (135-148)
[2016-12-02 19:42] LABS: BUN (BLOOD UREA NITROGEN) 133 MG/DL (6-23); CO2 (CARBON DIOXIDE) 17 MMOL/L (24-34); POTASSIUM, SERUM 6.7 MMOL/L (3.5-5.3)
[2016-12-02 22:13] LABS: ALLENS TEST Pos; BE (BASE EXCESS) -7.5 MEQ/L (0 +/- 2.5); CARBOXYHEMOGLOBIN 1.6 % (0-3); HCO3 (ACTUAL BICARBONATE) 24.8 MEQ/L (23-27); HEMOBLOGIN CONTENT 10.3 G/DL (14-18); INSTRUMENT SERIAL # 35151; METHEMOGLOBIN 0.3 % (0-3); MODE CMV; O2 CONTENT 13.2 VOL% (18-24); OPERATOR ID 13861; PCO2 (CO2 TENSION) 101 MMHG (35-45); PO2 (O2 TENSION) 84 MMHG (79-93); SAMPLE Arterial; TIDAL VOLUME 340 ML; pH 7.01 (7.37-7.43)
[2016-12-02 22:50] LABS: ALBUMIN 2.4 G/DL (3.5-5.0); CALCIUM, SERUM 8.3 MG/DL (8.5-10.4); CHLORIDE, SERUM 94 MMOL/L (96-112); DIRECT BILIRUBIN 0.2 MG/DL (0.0-0.4); GFR AFRICAN AMERICAN 6 ML/MIN (>=60); GFR NON AFRICAN AMERICAN 5 ML/MIN (>=60); PHOSPHORUS, SERUM 8.2 MG/DL (2.5-4.5); SGOT(AST) 15 U/L (5-40); SGPT(ALT) 23 U/L (5-65); SODIUM, SERUM 134 MMOL/L (135-148); TOTAL PROTEIN 6.9 G/DL (6.0-8.5)
[2016-12-02 22:51] LABS: CO2 (CARBON DIOXIDE) 26 MMOL/L (24-34); POTASSIUM, SERUM 5.2 MMOL/L (3.5-5.3)
[2016-12-02 22:52] LABS: A/G RATIO 0.5 (0.7-1.9); ALKALINE PHOSPHATASE 103 U/L (45-117); BUN (BLOOD UREA NITROGEN) 127 MG/DL (6-23); GLOBULIN 4.5 G/DL (2.5-4.1); GLUCOSE, SERUM 147 MG/DL (60-99); INDIRECT BILIRUBIN(NOT ORDER) 0.3 MG/DL (0.1-0.9); TOTAL BILIRUBIN 0.5 MG/DL (0-1.2)
[2016-12-03 03:22] LABS: BE (BASE EXCESS) -7.7 MEQ/L (0 +/- 2.5); CARBOXYHEMOGLOBIN 1.4 % (0-3); HCO3 (ACTUAL BICARBONATE) 23.7 MEQ/L (23-27); INSTRUMENT SERIAL # 35151; METHEMOGLOBIN 0.3 % (0-3); MODE CMV; O2 CONTENT 13.5 VOL% (18-24); OPERATOR ID 23712; PCO2 (CO2 TENSION) 88 MMHG (35-45); PO2 (O2 TENSION) 110 MMHG (79-93); SAMPLE Arterial; TIDAL VOLUME 400 ML; pH 7.05 (7.37-7.43)
[2016-12-03 03:23] LABS: ALLENS TEST Pos
[2016-12-03 05:45] LABS: BASOPHILS 0.1 %; BASOPHILS ABSOLUTE 0.01 10/3/uL (0.0-0.16); EOSINOPHILS 0.5 %; EOSINOPHILS ABSOLUTE 0.06 10/3/uL (0.0-0.53); HEMOGLOBIN 8.7 g/dL (13.6-17.8); IMMATURE GRANULOCYTES 0.9 %; LYMPHOCYTES 3.9 %; LYMPHOCYTES ABSOLUTE 0.43 10/3/uL (0.67-4.30); MEAN CORPUSCULAR HEMOGLOB 27.6 pg (26.0-34.0); MEAN CORPUSCULAR VOLUME 95.2 fL (80-100); MEAN PLATELET VOLUME 9.6 fL (9.2-13.0); MONOCYTES 2.3 %; MONOCYTES ABSOLUTE 0.26 10/3/uL (0.21-1.20); NEUTROPHILS 92.3 %; NEUTROPHILS ABSOLUTE 10.27 10/3/uL (2.02-8.40); RBC DISTRIBUTION WIDTH 17.1 % (12.0-16.0); RED CELL COUNT 3.15 10/6/uL (4.7-6.1); WHITE BLOOD CELLS 11.1 10/3/uL (4.5-10.5)
[2016-12-03 05:48] LABS: ALBUMIN 2.2 G/DL (3.5-5.0); CALCIUM, SERUM 7.8 MG/DL (8.5-10.4); CHLORIDE, SERUM 95 MMOL/L (96-112); CO2 (CARBON DIOXIDE) 24 MMOL/L (24-34); GLUCOSE, SERUM 120 MG/DL (60-99); POTASSIUM, SERUM 4.5 MMOL/L (3.5-5.3); SODIUM, SERUM 134 MMOL/L (135-148)
[2016-12-03 05:50] LABS: BUN (BLOOD UREA NITROGEN) 104 MG/DL (6-23); CREATININE 8.07 MG/DL (0.70-1.30); GFR AFRICAN AMERICAN 8 ML/MIN (>=60); GFR NON AFRICAN AMERICAN 7 ML/MIN (>=60); PHOSPHORUS, SERUM 5.2 MG/DL (2.5-4.5)
[2016-12-03 05:52] LABS: MANUAL DIFF NO %; PLATELET COUNT 166 10/3/uL (150-400)
[2016-12-03 11:08] LABS: ALLENS TEST Pos; BE (BASE EXCESS) -4.7 MEQ/L (0 +/- 2.5); CARBOXYHEMOGLOBIN 2.1 % (0-3); HCO3 (ACTUAL BICARBONATE) 25.4 MEQ/L (23-27); HEMOBLOGIN CONTENT 9.2 G/DL (14-18); INSTRUMENT SERIAL # 8087; METHEMOGLOBIN 0.3 % (0-3); MODE CMV; O2 CONTENT 12.1 VOL% (18-24); OPERATOR ID 32214; PCO2 (CO2 TENSION) 81 MMHG (35-45); PO2 (O2 TENSION) 88 MMHG (79-93); SAMPLE Arterial; TIDAL VOLUME 430 ML; pH 7.12 (7.37-7.43)
[2016-12-03 12:04] LABS: BASOPHILS 0.1 %; BASOPHILS ABSOLUTE 0.01 10/3/uL (0.0-0.16); EOSINOPHILS 1.2 %; EOSINOPHILS ABSOLUTE 0.11 10/3/uL (0.0-0.53); HEMOGLOBIN 8.5 g/dL (13.6-17.8); IMMATURE GRANULOCYTES 0.8 %; IMMATURE GRANULOCYTES ABSOLUTE 0.08 10/3/uL (0.0-0.11); LYMPHOCYTES 4.5 %; LYMPHOCYTES ABSOLUTE 0.43 10/3/uL (0.67-4.30); MEAN CORPUS HGB CONC 29.3 g/dL (32.0-36.0); MEAN CORPUSCULAR HEMOGLOB 27.5 pg (26.0-34.0); MEAN CORPUSCULAR VOLUME 93.9 fL (80-100); MEAN PLATELET VOLUME 9.7 fL (9.2-13.0); MONOCYTES 1.5 %; MONOCYTES ABSOLUTE 0.14 10/3/uL (0.21-1.20); NEUTROPHILS 91.9 %; NEUTROPHILS ABSOLUTE 8.73 10/3/uL (2.02-8.40); PLATELET COUNT 146 10/3/uL (150-400); RBC DISTRIBUTION WIDTH 16.9 % (12.0-16.0); RED CELL COUNT 3.09 10/6/uL (4.7-6.1); WHITE BLOOD CELLS 9.5 10/3/uL (4.5-10.5)
[2016-12-03 12:11] LABS: MANUAL DIFF NO %
[2016-12-03 12:14] LABS: CALCIUM, SERUM 7.6 MG/DL (8.5-10.4); CHLORIDE, SERUM 95 MMOL/L (96-112); CO2 (CARBON DIOXIDE) 24 MMOL/L (24-34); GLUCOSE, SERUM 140 MG/DL (60-99); SODIUM, SERUM 135 MMOL/L (135-148)
[2016-12-03 12:15] LABS: BUN (BLOOD UREA NITROGEN) 92 MG/DL (6-23); CREATININE 6.39 MG/DL (0.70-1.30); GFR AFRICAN AMERICAN 10 ML/MIN (>=60); GFR NON AFRICAN AMERICAN 9 ML/MIN (>=60); PHOSPHORUS, SERUM 3.8 MG/DL (2.5-4.5)
[2016-12-03 17:46] LABS: BASOPHILS 0.2 %; BASOPHILS ABSOLUTE 0.02 10/3/uL (0.0-0.16); EOSINOPHILS 2.1 %; HEMATOCRIT 28.7 % (40.0-51.0); HEMOGLOBIN 8.2 g/dL (13.6-17.8); IMMATURE GRANULOCYTES 0.9 %; IMMATURE GRANULOCYTES ABSOLUTE 0.08 10/3/uL (0.0-0.11); LYMPHOCYTES 4.7 %; LYMPHOCYTES ABSOLUTE 0.44 10/3/uL (0.67-4.30); MANUAL DIFF NO %; MEAN CORPUS HGB CONC 28.6 g/dL (32.0-36.0); MEAN CORPUSCULAR HEMOGLOB 26.7 pg (26.0-34.0); MEAN CORPUSCULAR VOLUME 93.5 fL (80-100); MEAN PLATELET VOLUME 10.1 fL (9.2-13.0); MONOCYTES 1.4 %; MONOCYTES ABSOLUTE 0.13 10/3/uL (0.21-1.20); NEUTROPHILS 90.7 %; NEUTROPHILS ABSOLUTE 8.52 10/3/uL (2.02-8.40); PLATELET COUNT 156 10/3/uL (150-400); RED CELL COUNT 3.07 10/6/uL (4.7-6.1); WHITE BLOOD CELLS 9.4 10/3/uL (4.5-10.5)
[2016-12-03 18:00] LABS: BUN (BLOOD UREA NITROGEN) 73 MG/DL (6-23); CALCIUM, SERUM 8.4 MG/DL (8.5-10.4); CHLORIDE, SERUM 97 MMOL/L (96-112); CO2 (CARBON DIOXIDE) 26 MMOL/L (24-34); CREATININE 5.51 MG/DL (0.70-1.30); GFR AFRICAN AMERICAN 12 ML/MIN (>=60); GFR NON AFRICAN AMERICAN 11 ML/MIN (>=60); GLUCOSE, SERUM 113 MG/DL (60-99); POTASSIUM, SERUM 3.9 MMOL/L (3.5-5.3); SODIUM, SERUM 136 MMOL/L (135-148)
[2016-12-03 23:42] LABS: BASOPHILS 0.3 %; BASOPHILS ABSOLUTE 0.03 10/3/uL (0.0-0.16); EOSINOPHILS 1.6 %; EOSINOPHILS ABSOLUTE 0.19 10/3/uL (0.0-0.53); HEMATOCRIT 30.1 % (40.0-51.0); HEMOGLOBIN 8.8 g/dL (13.6-17.8); IMMATURE GRANULOCYTES 0.7 %; IMMATURE GRANULOCYTES ABSOLUTE 0.08 10/3/uL (0.0-0.11); LYMPHOCYTES 3.9 %; LYMPHOCYTES ABSOLUTE 0.46 10/3/uL (0.67-4.30); MEAN CORPUS HGB CONC 29.2 g/dL (32.0-36.0); MEAN CORPUSCULAR HEMOGLOB 27.7 pg (26.0-34.0); MEAN CORPUSCULAR VOLUME 94.7 fL (80-100); MEAN PLATELET VOLUME 9.8 fL (9.2-13.0); MONOCYTES 2.2 %; MONOCYTES ABSOLUTE 0.26 10/3/uL (0.21-1.20); NEUTROPHILS 91.3 %; NEUTROPHILS ABSOLUTE 10.68 10/3/uL (2.02-8.40); PLATELET COUNT 136 10/3/uL (150-400); RBC DISTRIBUTION WIDTH 16.8 % (12.0-16.0); RED CELL COUNT 3.18 10/6/uL (4.7-6.1); WHITE BLOOD CELLS 11.7 10/3/uL (4.5-10.5)
[2016-12-03 23:53] LABS: MANUAL DIFF NO %
[2016-12-03 23:59] LABS: CALCIUM, SERUM 7.9 MG/DL (8.5-10.4); CHLORIDE, SERUM 97 MMOL/L (96-112); CO2 (CARBON DIOXIDE) 28 MMOL/L (24-34); GFR AFRICAN AMERICAN 15 ML/MIN (>=60); GFR NON AFRICAN AMERICAN 13 ML/MIN (>=60); GLUCOSE, SERUM 127 MG/DL (60-99); PHOSPHORUS, SERUM 2.9 MG/DL (2.5-4.5); POTASSIUM, SERUM 3.9 MMOL/L (3.5-5.3); SODIUM, SERUM 137 MMOL/L (135-148)
[2016-12-04] LABS: BUN (BLOOD UREA NITROGEN) 68 MG/DL (6-23); CREATININE 4.84 MG/DL (0.70-1.30)
[2016-12-04 04:05] LABS: ALLENS TEST Pos; BE (BASE EXCESS) -0.5 MEQ/L (0 +/- 2.5); CARBOXYHEMOGLOBIN 2.1 % (0-3); HCO3 (ACTUAL BICARBONATE) 29.1 MEQ/L (23-27); HEMOBLOGIN CONTENT 9.3 G/DL (14-18); INSTRUMENT SERIAL # 35151; METHEMOGLOBIN 0.3 % (0-3); MODE CMV; O2 CONTENT 11.4 VOL% (18-24); PCO2 (CO2 TENSION) 82 MMHG (35-45); PO2 (O2 TENSION) 64 MMHG (79-93); SAMPLE Arterial; TIDAL VOLUME 430 ML; pH 7.17 (7.37-7.43)
[2016-12-04 06:12] LABS: ALBUMIN 2.1 G/DL (3.5-5.0); CALCIUM, SERUM 8.1 MG/DL (8.5-10.4); CHLORIDE, SERUM 96 MMOL/L (96-112); CO2 (CARBON DIOXIDE) 27 MMOL/L (24-34); GFR AFRICAN AMERICAN 18 ML/MIN (>=60); GFR NON AFRICAN AMERICAN 16 ML/MIN (>=60); GLUCOSE, SERUM 127 MG/DL (60-99); PHOSPHORUS, SERUM 2.8 MG/DL (2.5-4.5); POTASSIUM, SERUM 3.7 MMOL/L (3.5-5.3); SODIUM, SERUM 137 MMOL/L (135-148)
[2016-12-04 06:13] LABS: BUN (BLOOD UREA NITROGEN) 61 MG/DL (6-23); CREATININE 4.06 MG/DL (0.70-1.30)
[2016-12-04 06:16] LABS: BASOPHILS 0.4 %; BASOPHILS ABSOLUTE 0.04 10/3/uL (0.0-0.16); EOSINOPHILS 2.1 %; EOSINOPHILS ABSOLUTE 0.23 10/3/uL (0.0-0.53); HEMATOCRIT 30.6 % (40.0-51.0); HEMOGLOBIN 8.7 g/dL (13.6-17.8); IMMATURE GRANULOCYTES 0.5 %; IMMATURE GRANULOCYTES ABSOLUTE 0.06 10/3/uL (0.0-0.11); LYMPHOCYTES 4.2 %; LYMPHOCYTES ABSOLUTE 0.47 10/3/uL (0.67-4.30); MEAN CORPUS HGB CONC 28.4 g/dL (32.0-36.0); MEAN CORPUSCULAR HEMOGLOB 26.8 pg (26.0-34.0); MEAN CORPUSCULAR VOLUME 94.2 fL (80-100); MEAN PLATELET VOLUME 11.5 fL (9.2-13.0); MONOCYTES 2.8 %; MONOCYTES ABSOLUTE 0.31 10/3/uL (0.21-1.20); NEUTROPHILS ABSOLUTE 10.06 10/3/uL (2.02-8.40); PLATELET COUNT 165 10/3/uL (150-400); RBC DISTRIBUTION WIDTH 17.1 % (12.0-16.0); RED CELL COUNT 3.25 10/6/uL (4.7-6.1); WHITE BLOOD CELLS 11.2 10/3/uL (4.5-10.5)
[2016-12-04 06:18] LABS: MANUAL DIFF NO %
[2016-12-04 11:26] LABS: HEMATOCRIT 29.6 % (40.0-51.0); HEMOGLOBIN 8.6 g/dL (13.6-17.8); MANUAL DIFF YES %; MEAN CORPUS HGB CONC 29.1 g/dL (32.0-36.0); MEAN CORPUSCULAR VOLUME 93.1 fL (80-100); MEAN PLATELET VOLUME 9.4 fL (9.2-13.0); PLATELET COUNT 132 10/3/uL (150-400); RED CELL COUNT 3.18 10/6/uL (4.7-6.1); WHITE BLOOD CELLS 9.1 10/3/uL (4.5-10.5)
[2016-12-04 11:39] LABS: CALCIUM, SERUM 8.3 MG/DL (8.5-10.4); CHLORIDE, SERUM 97 MMOL/L (96-112); CO2 (CARBON DIOXIDE) 28 MMOL/L (24-34); GFR AFRICAN AMERICAN 22 ML/MIN (>=60); GFR NON AFRICAN AMERICAN 19 ML/MIN (>=60); GLUCOSE, SERUM 111 MG/DL (60-99); PHOSPHORUS, SERUM 2.5 MG/DL (2.5-4.5); POTASSIUM, SERUM 3.7 MMOL/L (3.5-5.3); SODIUM, SERUM 138 MMOL/L (135-148)
[2016-12-04 11:42] LABS: BUN (BLOOD UREA NITROGEN) 55 MG/DL (6-23); CREATININE 3.41 MG/DL (0.70-1.30)
[2016-12-04 11:49] LABS: ANISOCYTOSIS 1+ (5-10/OIF) (0-5/OIF); BAND NEUTROPHILS 24 %; BASOPHILS 1 %; BASOPHILS ABSOLUTE (CALC) 0.09 10/3/uL (0.0-0.16); EOSINOPHILS 2 %; EOSINOPHILS ABSOLUTE (CALC) 0.18 10/3/uL (0.0-0.53); IMMATURE GRANS ABSOLUTE (CALC) 0.09 10/3/uL (0.0-0.11); LYMPHOCYTES 6 %; LYMPHOCYTES ABSOLUTE (CALC) 0.55 10/3/uL (0.67-4.30); METAMYELOCYTES 1 %; MONOCYTES 2 %; MONOCYTES ABSOLUTE (CALC) 0.18 10/3/uL (0.21-1.20); NEUTROPHILS ABSOLUTE (CALC) 8.01 10/3/uL (2.02-8.40); PLATELET ESTIMATE SLT DEC (ADEQUATE); SEGMENTED NEUTROPHIL (0) 64 %; TOTAL NUCLEATED CELLS 100
[2016-12-04 11:50] LABS: HELMET CELLS OCC (0-2/OIF); POLYCHROMASIA 1+ (2-5/OIF) (0-1/OIF); SPHEROCYTES OCC (0-2/OIF); TARGET CELLS OCC (1-2/OIF) (0-1/OIF); TEARDROP SHAPED RBCS OCC (0-2/OIF)
[2016-12-04 11:51] LABS: MACROCYTES 1+ (5-10/OIF) (0-5/OIF); MICROCYTES 1+ (5-10/OIF) (0-5/OIF); TOXIC GRANULATION SLT; VACUOLATED NEUTROPHILES OCC
[2016-12-04 17:49] LABS: BASOPHILS 0.4 %; BASOPHILS ABSOLUTE 0.04 10/3/uL (0.0-0.16); EOSINOPHILS 2.9 %; EOSINOPHILS ABSOLUTE 0.27 10/3/uL (0.0-0.53); HEMATOCRIT 29.8 % (40.0-51.0); HEMOGLOBIN 8.5 g/dL (13.6-17.8); IMMATURE GRANULOCYTES 0.8 %; IMMATURE GRANULOCYTES ABSOLUTE 0.07 10/3/uL (0.0-0.11); LYMPHOCYTES 5.8 %; LYMPHOCYTES ABSOLUTE 0.53 10/3/uL (0.67-4.30); MEAN CORPUS HGB CONC 28.5 g/dL (32.0-36.0); MEAN CORPUSCULAR VOLUME 94.6 fL (80-100); MEAN PLATELET VOLUME 10.1 fL (9.2-13.0); MONOCYTES 1.6 %; MONOCYTES ABSOLUTE 0.15 10/3/uL (0.21-1.20); NEUTROPHILS 88.5 %; NEUTROPHILS ABSOLUTE 8.12 10/3/uL (2.02-8.40); PLATELET COUNT 152 10/3/uL (150-400); RBC DISTRIBUTION WIDTH 17.2 % (12.0-16.0); RED CELL COUNT 3.15 10/6/uL (4.7-6.1); WHITE BLOOD CELLS 9.2 10/3/uL (4.5-10.5)
[2016-12-04 17:51] LABS: MANUAL DIFF NO %
[2016-12-04 18:01] LABS: BUN (BLOOD UREA NITROGEN) 52 MG/DL (6-23); CALCIUM, SERUM 8.2 MG/DL (8.5-10.4); CHLORIDE, SERUM 97 MMOL/L (96-112); CO2 (CARBON DIOXIDE) 29 MMOL/L (24-34); CREATININE 3.11 MG/DL (0.70-1.30); GFR AFRICAN AMERICAN 25 ML/MIN (>=60); GFR NON AFRICAN AMERICAN 21 ML/MIN (>=60); GLUCOSE, SERUM 113 MG/DL (60-99); SODIUM, SERUM 137 MMOL/L (135-148)
[2016-12-04 23:06] LABS: BASOPHILS 0.8 %; BASOPHILS ABSOLUTE 0.06 10/3/uL (0.0-0.16); EOSINOPHILS 3.4 %; EOSINOPHILS ABSOLUTE 0.27 10/3/uL (0.0-0.53); HEMATOCRIT 27.8 % (40.0-51.0); HEMOGLOBIN 7.8 g/dL (13.6-17.8); IMMATURE GRANULOCYTES 0.4 %; IMMATURE GRANULOCYTES ABSOLUTE 0.03 10/3/uL (0.0-0.11); LYMPHOCYTES 7.3 %; LYMPHOCYTES ABSOLUTE 0.58 10/3/uL (0.67-4.30); MEAN CORPUS HGB CONC 28.1 g/dL (32.0-36.0); MEAN CORPUSCULAR HEMOGLOB 26.5 pg (26.0-34.0); MEAN CORPUSCULAR VOLUME 94.6 fL (80-100); MONOCYTES 0.3 %; MONOCYTES ABSOLUTE 0.02 10/3/uL (0.21-1.20); NEUTROPHILS 87.8 %; NEUTROPHILS ABSOLUTE 7.03 10/3/uL (2.02-8.40); PLATELET COUNT 149 10/3/uL (150-400); RBC DISTRIBUTION WIDTH 17.2 % (12.0-16.0); RED CELL COUNT 2.94 10/6/uL (4.7-6.1)
[2016-12-04 23:11] LABS: MANUAL DIFF NO %
[2016-12-04 23:14] LABS: BUN (BLOOD UREA NITROGEN) 48 MG/DL (6-23); CALCIUM, SERUM 8.2 MG/DL (8.5-10.4); CHLORIDE, SERUM 96 MMOL/L (96-112); CO2 (CARBON DIOXIDE) 28 MMOL/L (24-34); CREATININE 2.92 MG/DL (0.70-1.30); GFR AFRICAN AMERICAN 27 ML/MIN (>=60); GFR NON AFRICAN AMERICAN 23 ML/MIN (>=60); GLUCOSE, SERUM 120 MG/DL (60-99); PHOSPHORUS, SERUM 2.9 MG/DL (2.5-4.5); SODIUM, SERUM 137 MMOL/L (135-148)
[2016-12-05 03:30] LABS: ALLENS TEST Pos; BE (BASE EXCESS) 1.1 MEQ/L (0 +/- 2.5); CARBOXYHEMOGLOBIN 1.9 % (0-3); HCO3 (ACTUAL BICARBONATE) 28.1 MEQ/L (23-27); HEMOBLOGIN CONTENT 8.3 G/DL (14-18); INSTRUMENT SERIAL # 35151; METHEMOGLOBIN 0.3 % (0-3); MODE CMV; OPERATOR ID 17370; PCO2 (CO2 TENSION) 59 MMHG (35-45); PO2 (O2 TENSION) 84 MMHG (79-93); SAMPLE Arterial; TIDAL VOLUME 400 ML; pH 7.29 (7.37-7.43)
[2016-12-05 04:42] LABS: BASOPHILS 0.6 %; BASOPHILS ABSOLUTE 0.04 10/3/uL (0.0-0.16); EOSINOPHILS 4.5 %; HEMATOCRIT 27.4 % (40.0-51.0); HEMOGLOBIN 7.6 g/dL (13.6-17.8); IMMATURE GRANULOCYTES 0.6 %; IMMATURE GRANULOCYTES ABSOLUTE 0.04 10/3/uL (0.0-0.11); LYMPHOCYTES ABSOLUTE 0.47 10/3/uL (0.67-4.30); MEAN CORPUS HGB CONC 27.7 g/dL (32.0-36.0); MEAN CORPUSCULAR HEMOGLOB 26.3 pg (26.0-34.0); MEAN CORPUSCULAR VOLUME 94.8 fL (80-100); MEAN PLATELET VOLUME 9.9 fL (9.2-13.0); MONOCYTES ABSOLUTE 0.07 10/3/uL (0.21-1.20); NEUTROPHILS 86.3 %; PLATELET COUNT 156 10/3/uL (150-400); RBC DISTRIBUTION WIDTH 17.1 % (12.0-16.0); RED CELL COUNT 2.89 10/6/uL (4.7-6.1); WHITE BLOOD CELLS 6.7 10/3/uL (4.5-10.5)
[2016-12-05 04:49] LABS: MANUAL DIFF NO %
[2016-12-05 04:58] LABS: BUN (BLOOD UREA NITROGEN) 45 MG/DL (6-23); CALCIUM, SERUM 8.2 MG/DL (8.5-10.4); CHLORIDE, SERUM 97 MMOL/L (96-112); CO2 (CARBON DIOXIDE) 30 MMOL/L (24-34); CREATININE 2.76 MG/DL (0.70-1.30); GFR AFRICAN AMERICAN 29 ML/MIN (>=60); GFR NON AFRICAN AMERICAN 25 ML/MIN (>=60); GLUCOSE, SERUM 111 MG/DL (60-99); POTASSIUM, SERUM 3.9 MMOL/L (3.5-5.3); SODIUM, SERUM 137 MMOL/L (135-148)
[2016-12-05 10:24] LABS: ALBUMIN 2.1 G/DL (3.5-5.0); PHOSPHORUS, SERUM 2.5 MG/DL (2.5-4.5)
[2016-12-05 12:21] LABS: HEMATOCRIT 27.7 % (40.0-51.0); HEMOGLOBIN 7.8 g/dL (13.6-17.8); MANUAL DIFF YES %; MEAN CORPUS HGB CONC 28.2 g/dL (32.0-36.0); MEAN CORPUSCULAR HEMOGLOB 26.9 pg (26.0-34.0); MEAN CORPUSCULAR VOLUME 95.5 fL (80-100); MEAN PLATELET VOLUME 9.7 fL (9.2-13.0); PLATELET COUNT 146 10/3/uL (150-400); WHITE BLOOD CELLS 7.1 10/3/uL (4.5-10.5)
[2016-12-05 12:32] LABS: BUN (BLOOD UREA NITROGEN) 45 MG/DL (6-23); CHLORIDE, SERUM 97 MMOL/L (96-112); CO2 (CARBON DIOXIDE) 29 MMOL/L (24-34); CREATININE 2.66 MG/DL (0.70-1.30); GFR AFRICAN AMERICAN 30 ML/MIN (>=60); GFR NON AFRICAN AMERICAN 26 ML/MIN (>=60); GLUCOSE, SERUM 113 MG/DL (60-99); PHOSPHORUS, SERUM 3.2 MG/DL (2.5-4.5); POTASSIUM, SERUM 3.9 MMOL/L (3.5-5.3); SODIUM, SERUM 136 MMOL/L (135-148)
[2016-12-05 13:00] LABS: BAND NEUTROPHILS 17 %; BASOPHILS 1 %; BASOPHILS ABSOLUTE (CALC) 0.07 10/3/uL (0.0-0.16); EOSINOPHILS 2 %; EOSINOPHILS ABSOLUTE (CALC) 0.14 10/3/uL (0.0-0.53); LYMPHOCYTES 3 %; LYMPHOCYTES ABSOLUTE (CALC) 0.21 10/3/uL (0.67-4.30); MONOCYTES 7 %; NEUTROPHILS ABSOLUTE (CALC) 6.18 10/3/uL (2.02-8.40); SEGMENTED NEUTROPHIL (0) 70 %; TOTAL NUCLEATED CELLS 100
[2016-12-05 13:01] LABS: ANISOCYTOSIS 1+ (5-10/OIF) (0-5/OIF); MACROCYTES 1+ (5-10/OIF) (0-5/OIF); PLATELET ESTIMATE SLT DEC (ADEQUATE)
== END 2016-12-05 16:29 | disposition expired | DRG 207 ==
LOC: ER 01:42 → CCU 04:34 → 6NO 11-16 19:40 → CCU 11-18 12:17 → 7NO 11-23 15:54 → CCU 11-24 20:24
PROVIDERS: Internal Medicine Critical Care Medicine; Internal Medicine Nephrology; Internal Medicine Pulmonary Disease; Specialist
PROC: 5A09457 Assistance with Respiratory Ventilation, 24-96 Consecutive Hours, Continuous Positive Airway Pressure (ICD-10-PCS; principal; 2016-11-14)
PROC: 5A1955Z Respiratory Ventilation, Greater than 96 Consecutive Hours (ICD-10-PCS; 2016-11-14)
PROC: 0BH17EZ Insertion of Endotracheal Airway into Trachea, Via Natural or Artificial Opening (ICD-10-PCS; 2016-11-14)
PROC: 5A1D60Z (ICD-10-PCS; 2016-11-15)
PROC: 0BH18EZ Insertion of Endotracheal Airway into Trachea, Via Natural or Artificial Opening Endoscopic (ICD-10-PCS; 2016-11-24)
PROC: 5A1955Z Respiratory Ventilation, Greater than 96 Consecutive Hours (ICD-10-PCS; 2016-11-24)
PROC: 0B948ZX Drainage of Right Upper Lobe Bronchus, Via Natural or Artificial Opening Endoscopic, Diagnostic (ICD-10-PCS; 2016-11-26)
PROC: 02HV33Z Insertion of Infusion Device into Superior Vena Cava, Percutaneous Approach (ICD-10-PCS; 2016-11-28)
PROC: 4A02X4A Measurement of Cardiac Electrical Activity, Guidance, External Approach (ICD-10-PCS; 2016-11-28)
DX: J96.21 Acute and chronic respiratory failure with hypoxia (principal); J69.0 Pneumonitis due to inhalation of food and vomit; I27.0 Primary pulmonary hypertension; I12.0 Hypertensive chronic kidney disease with stage 5 chronic kidney disease or end stage renal disease; N17.9 Acute kidney failure, unspecified; E11.22 Type 2 diabetes mellitus with diabetic chronic kidney disease; N18.6 End stage renal disease; Q21.1 Atrial septal defect; N02.8 Recurrent and persistent hematuria with other morphologic changes; K56.7 Ileus, unspecified; J44.0 Chronic obstructive pulmonary disease with (acute) lower respiratory infection; I46.9 Cardiac arrest, cause unspecified; J96.22 Acute and chronic respiratory failure with hypercapnia; C14.0 Malignant neoplasm of pharynx, unspecified; E03.9 Hypothyroidism, unspecified; Z51.5 Encounter for palliative care; R13.10 Dysphagia, unspecified; D50.9 Iron deficiency anemia, unspecified; J20.9 Acute bronchitis, unspecified; F17.220 Nicotine dependence, chewing tobacco, uncomplicated; G89.4 Chronic pain syndrome; K59.00 Constipation, unspecified; J98.6 Disorders of diaphragm; K03.81 Cracked tooth; Z92.21 Personal history of antineoplastic chemotherapy; Z99.2 Dependence on renal dialysis; Z93.1 Gastrostomy status; Z99.81 Dependence on supplemental oxygen; Z98.890 Other specified postprocedural states; Z88.0 Allergy status to penicillin; Z91.041 Radiographic dye allergy status; Z85.89 Personal history of malignant neoplasm of other organs and systems; Z92.3 Personal history of irradiation; Z53.09 Procedure and treatment not carried out because of other contraindication
CPT/HCPCS: 31720; 36569; 36600; 71010; 71250; 74000; 74176; 76705; 80048; 80053; 80069; 80074; 80076; 80202; 82248; 82330; 82805; 82962; 83735; 83880; 84100; 84132; 84134; 84145; 84439; 84443; 84478; 84484; 85025; 85610; 85730; 87015; 87040; 87070; 87102; 87116; 87205; 87389; 87641; 88112; 88312; 89051; 92950; 93005; 93306; 93990; 94002; 94003; 94640; 94660; 94667; 94668; 94770; 99291; A9270-GY; C1751; C1894; C9113; G0257; J0330; J0360; J0610; J0692; J0885; J1956; J2185; J2250; J2405; J2765; J2920; J2930; J3370